=== PATIENT | male | born 1950 | race Caucasian/White ===

== ENCOUNTER → 2016-12-01 | Outpatient (CLI) | payer OTHER ==
--- NOTE | 2016-12-01 17:54 | XR ---
EXAMINATION TYPE: XR KUB DATE OF EXAM: 12/01/2016 5:49 PM COMPARISON: 02/24/2015 HISTORY: Flank pain TECHNIQUE: 2 views FINDINGS: There is no sign of intestinal obstruction or pneumoperitoneum. Fecal pattern is normal. Th ere are 2 calcifications over the left kidney that measure 5 mm. There are implants in the prostate g land. There is no sign of a mass. IMPRESSION: Left renal calcifications appear new compared to old exam. Nonacute abdomen.
== END ==
LOC: RADXRMAIN 17:36
PROVIDERS: ATTEND Urology
DX: N28.89 Other specified disorders of kidney and ureter (principal)
CPT/HCPCS: 74000

== ENCOUNTER → 2016-12-02 | Outpatient (CLI) | payer OTHER ==
--- NOTE | 2016-12-02 14:37 | XR ---
EXAMINATION TYPE: XR lumbar spine 2 or 3V DATE OF EXAM: 12/02/2016 2:14 PM COMPARISON: NONE HISTORY: 66-year-old male with low back pain TECHNIQUE: 3 views FINDINGS: 5 lumbar type vertebral bodies. There is facet arthropathy in the lower lumbar spine. There is modera te disc space narrowing in the upper lumbar spine with a mild multilevel endplate spondylosis. Sugges tion of a diffuse disc bulge at L4-L5. Vertebral body heights are preserved and alignment is maintain ed. IMPRESSION: 1. Facet arthropathy lower lumbar spine. 2. Multilevel degenerative disc disease, moderate in the upper lumbar spine. 3. No vertebral compression collapse or malalignment.
== END | disposition home or self-care (01) ==
LOC: RADXRMAIN 14:01
PROVIDERS: ATTEND Nurse Practitioner
DX: M12.88 Other specific arthropathies, not elsewhere classified, other specified site (principal); M51.36 Other intervertebral disc degeneration, lumbar region
CPT/HCPCS: 72100

== ENCOUNTER 2016-12-05 07:46 | Emergency (ER) | payer OTHER ==
[2016-12-05] MEDS ORDERED: KETOROLAC 30 MG/ML 1 ML VIAL IVP STA (08:05)
[2016-12-05] MEDS ORDERED: SODIUM CHLORIDE 0.9% 1,000 ML IV STA (08:05)
[2016-12-05] MEDS ORDERED: ONDANSETRON 4 MG/2 ML VIAL IVP STA (08:05)
--- NOTE | 2016-12-05 08:13 | ED ---
Abdominal Pain HPI - General Chief Complaint: Abdominal Pain Stated Complaint: poss kidney stone Time Seen by Provider: 12/05/16 07:51 Source: patient, RN notes reviewed Mode of arrival: ambulatory Limitations: no limitations - History of Present Illness Initial Comments: This is a 66-year-old male with a history of diabetes coronary artery disease with stents history kidney stones and history of prostate cancer which is currently being treated with radioactive seeds and sensitivity onset in August of this year back pain to get very severe last week and he did seek medical attention. He was found have to 5 mm kidney stones per his report and his left kidney. He had the onset this morning at 3 AM with severe 20/10 left-sided sharp flank pain nonradiating with associated nausea and dry heaves. He denies any fevers chills sweats cough phlegm production dysuria or hematuria. He states the pain is now down to about a 3 was starting to come back and has been episodic. He does not feel it's been moving since it started but always in about the same place. MD Complaint: flank pain - Related Data Home Medications Medication Instructions Recorded Confirmed Carvedilol [Coreg] 12.5 mg PO BID 02/24/15 12/05/16 Clopidogrel [Plavix] 75 mg PO DAILY 02/24/15 12/05/16 Furosemide [Lasix] 20 mg PO MOWEFR 02/24/15 12/05/16 Insulin Detemir [Levemir] See Protocol SQ BID 02/24/15 12/05/16 Losartan [Cozaar] 12.5 mg PO DAILY 02/24/15 12/05/16 Nitroglycerin Sl Tabs [Nitrostat] 0.4 mg SUBLINGUAL Q5M PRN 02/24/15 12/05/16 Omeprazole [PriLOSEC] 20 mg PO AC-BRKFST 02/24/15 12/05/16 Simvastatin [Zocor] 40 mg PO HS 02/24/15 12/05/16 sitaGLIPtin [Januvia] 100 mg PO DAILY 02/24/15 12/05/16 metFORMIN HCL 1,000 mg PO BID 02/27/15 12/05/16 Aspirin EC [Ecotrin Low Dose] 81 mg PO DAILY 12/05/16 12/05/16 Potassium Citrate [Potassium 10 meq PO BID 12/05/16 12/05/16 Citrate ER] Vitamin B Complex 1 cap PO DAILY 12/05/16 12/05/16 methylPREDNISolone [Medrol Dose See Taper PO DIRECTED 12/05/16 12/05/16 Pack] Previous Rx's Medication Instructions Recorded Tamsulosin HCl [Flomax] 0.4 mg PO DAILY #4 cap 02/24/15 Ketorolac [Toradol] 10 mg PO Q6HR #20 tab 12/05/16 Allergies Allergy/AdvReac Type Severity Reaction Status Date / Time No Known Allergies Allergy Unverified 12/05/16 08:39 Review of Systems ROS Statement: Those systems with pertinent positive or pertinent negative responses have been documented in the HPI. ROS Other: All systems not noted in ROS Statement are negative. Past Medical History Past Medical History: Coronary Artery Disease (CAD), Cancer, Chest Pain / Angina , Diabetes Mellitus, GERD/Reflux, Hypertension, Myocardial Infarction ([place]), Pneumonia, Prostate Disorder, Renal Disease Additional Past Medical History / Comment(s): 02/27/15 Pt presented to [facility] with R flank pain. PT has hx of frequent kidney stones. Pt was seen in ER on with microscopic hematuria, calculus kidney and flank pain. Other HX: multiple. kidney stones, IDDM, prostate cancer being monitored, pneumonia in 1998 and 1999. Last Myocardial Infarction Date:: 08/17/07 History of Any Multi-Drug Resistant Organisms: None Reported Past Surgical History: Cholecystectomy, Heart Catheterization With Stent, Orthopedic Surgery, Tonsillectomy Additional Past Surgical History / Comment(s): CCath with stent 08/17/07 , bilateral lasik eye surgery, L shoulder rotator cuff repair, L elbow bursa removal, Past Anesthesia/Blood Transfusion Reactions: No Reported Reaction Date of Last Stent Placement:: 08/17/07 Past Psychological History: No Psychological Hx Reported Additional Psychological History / Comment(s): Pt resides with his . He just retired and moved to [place] 1 month ago. He is independent. He uses no assistive device. No home care. He drives. Smoking Status: Never smoker Past Alcohol Use History: None Reported Past Drug Use History: None Reported - Past Family History Father Family Medical History: Cancer Additional Family Medical History / Comment(s): Father of lung cancer-he was a smoker. Mother Family Medical History: Cancer Additional Family Medical History / Comment(s): Mother of ovarian cancer. General Exam - General Exam Comments Initial Comments: This is a well-developed well-nourished awake alert oriented 3 male Limitations: no limitations General appearance: alert, anxious Head exam: Present: atraumatic, normocephalic, normal inspection Eye exam: Present: normal appearance, PERRL, EOMI. Absent: scleral icterus, conjunctival injection, periorbital swelling ENT exam: Present: normal exam, mucous membranes moist Neck exam: Present: normal inspection. Absent: tenderness, meningismus, lymphadenopathy Respiratory exam: Present: normal lung sounds bilaterally. Absent: respiratory distress, wheezes, rales, rhonchi, stridor Cardiovascular Exam: Present: regular rate, normal rhythm, normal heart sounds. Absent: systolic murmur, diastolic murmur, rubs, gallop, clicks GI/Abdominal exam: Present: soft, normal bowel sounds. Absent: distended, tenderness, guarding, rebound, rigid Extremities exam: Present: normal inspection, full ROM, normal capillary refill. Absent: tenderness, pedal edema, joint swelling, calf tenderness Back exam: Present: normal inspection. Absent: CVA tenderness (R), CVA tenderness (L), muscle spasm, paraspinal tenderness, vertebral tenderness Neurological exam: Present: alert, oriented X3, CN II-XII intact Psychiatric exam: Present: normal affect, normal mood Skin exam: Present: warm, dry, intact, normal color. Absent: rash Course Vital Signs 12/05/16 12/05/16 07:50 09:01 Temperature 97 F L 97.2 F L Pulse Rate 57 L 64 Respiratory 20 16 Rate Blood Pressure 188/79 131/75 O2 Sat by Pulse 98 98 Oximetry Medical Decision Making - Medical Decision Making I did reevaluate the patient on several occasions he is to be pain-free. He will be discharged I did discuss findings with him and his he'll be placed on a prescription for Toradol is a follow-up with his urologist and return when necessary is also increase oral fluids the patient was able to present a urine sample he is afebrile and has no elevation of white count so at this time I don' t infectious processes. He is already on Flomax. - Lab Data Result diagrams: 12/05/16 08:20 12/05/16 08:20 Lab Results 04/24/17 04/24/17 Range/Units 08:20 08:20 WBC 8.7 (3.8-10.6) k/uL RBC 4.94 (4.30-5.90) m/uL Hgb 15.1 (13.0-17.5) gm/dL Hct 44.4 (39.0-53.0) % MCV 89.8 (80.0-100.0) fL MCH 30.5 (25.0-35.0) pg MCHC 34.0 (31.0-37.0) g/dL RDW 13.2 (11.5-15.5) % Plt Count 161 (150-450) k/uL Neutrophils % 73 % Lymphocytes % 15 % Monocytes % 10 % Eosinophils % 1 % Basophils % 0 % Neutrophils # 6.3 (1.3-7.7) k/uL Lymphocytes # 1.3 (1.0-4.8) k/uL Monocytes # 0.9 (0-1.0) k/uL Eosinophils # 0.1 (0-0.7) k/uL Basophils # 0.0 (0-0.2) k/uL Sodium 139 (137-145) mmol/L Potassium 4.7 (3.5-5.1) mmol/L Chloride 98 (98-107) mmol/L Carbon Dioxide 29 (22-30) mmol/L Anion Gap 12 mmol/L BUN 26 H (9-20) mg/dL Creatinine 0.92 (0.66-1.25) mg/dL Est GFR (MDRD) Af Amer >60 (>60 ml/min/1.73 sqM) Est GFR (MDRD) Non-Af >60 (>60 ml/min/1.73 sqM) Glucose 166 H (74-99) mg/dL Calcium 9.4 (8.4-10.2) mg/dL Total Bilirubin 2.0 H (0.2-1.3) mg/dL AST 24 (17-59) U/L ALT 33 (21-72) U/L Alkaline Phosphatase 51 (38-126) U/L Total Protein 7.6 (6.3-8.2) g/dL Albumin 4.4 (3.5-5.0) g/dL Amylase 75 (30-110) U/L Lipase 527 H (23-300) U/L - Radiology Data Radiology results: report reviewed (I did review the x-rays and reports. Is a 4 mm obstructive left mid ureteral calculus with [id number] hydronephrosis some stranding is noted. Please see the complete report), image reviewed Disposition Clinical Impression: Kidney stone on left side, Renal colic on left side Disposition: HOME SELF-CARE Condition: Good Instructions: Kidney Stones (ED), Renal Colic (ED), Flank Pain (ED) Prescriptions: Ketorolac [Toradol] 10 mg PO Q6HR #20 tab
[2016-12-05 08:33] LABS: Basophils % (A) 0 %; CH 31.1; CHCM 34.7; Eosinophils # (A) 0.1 k/uL (0-0.7); Eosinophils % (A) 1 %; HCT 44.4 % (39.0-53.0); HDW 2.76; HGB 15.1 gm/dL (13.0-17.5); Luc # (Auto) 0.11; Luc % (Auto) 1; Lymphocytes # (A) 1.3 k/uL (1.0-4.8); Lymphocytes % (A) 15 %; MCH 30.5 pg (25.0-35.0); MCV 89.8 fL (80.0-100.0); Mean Platelet Volume 8.1; Monocytes # (A) 0.9 k/uL (0-1.0); Monocytes % (A) 10 %; Neutrophils # (A) 6.3 k/uL (1.3-7.7); Neutrophils % (A) 73 %; RBC 4.94 m/uL (4.30-5.90); RDW 13.2 % (11.5-15.5); WBC 8.7 k/uL (3.8-10.6); WBC (Perox) 8.81
[2016-12-05 08:41] LABS: ALT 33 U/L (21-72); AST 24 U/L (17-59); Alkaline Phosphatase 51 U/L (38-126); Amylase 75 U/L (30-110); Anion Gap 12 mmol/L; Blood Urea Nitrogen 26 mg/dL (9-20); Calcium 9.4 mg/dL (8.4-10.2); Carbon Dioxide 29 mmol/L (22-30); Chloride 98 mmol/L (98-107); Glucose 166 mg/dL (74-99); Non-African American GFR(MDRD) >60 (>60 ml/min/1.73 sqM); Potassium 4.7 mmol/L (3.5-5.1); Sodium 139 mmol/L (137-145); Total Protein 7.6 g/dL (6.3-8.2)
--- NOTE | 2016-12-05 09:01 | CT ---
EXAMINATION TYPE: CT abdomen pelvis wo con DATE OF EXAM: 12/05/2016 8:43 AM COMPARISON: 02/27/2015 HISTORY: 66-year-old male with left flank pain and history of renal stones CT DLP: 723.20 mGycm. Automated exposure control for dose reduction was used. TECHNIQUE: Contiguous axial scanning of the abdomen and pelvis without IV contrast. Coronal and sagit candi reconstructions performed. FINDINGS: The heart is normal size without pericardial effusion. Coronary vessel calcifications are present and are a marker for coronary artery disease. Strandy atelectasis in the lower lungs without pleural eff usion. Noncontrast appearance of the liver, adrenal glands, spleen, and pancreas grossly unremarkable. There is extensive bilateral perinephric stranding. Punctate 2 mm nonobstructive calculus posterior m id pole right kidney. There is a 5 mm nonobstructive calculus in the upper to midpole left kidney and punctate 1 to 2 mm calculus in the lower pole. In addition, there is mild to moderate left-sided hyd ronephrosis with a 4 mm obstructive calculus in the left mid ureter. No dilated small bowel, free fluid, or free air. Incidental normal variant of a direct takeoff of the common hepatic artery directly from the aorta ad jacent to the celiac axis. No mesenteric or retroperitoneal lymphadenopathy. Normal appendix. Mild scattered stool without pericolonic inflammatory change. There is circumferential bladder wall thickening. Numerous brachytherapy seeds are present. These are new from 02/27/2015. No abnormal fluid collection in the pelvis or pelvic lymphadenopathy. Bones: Degenerative changes at the hips and additional degenerative changes lower lumbar spine. IMPRESSION: 1. A 4 mm obstructive left mid ureteral calculus with mild to moderate left-sided hydronephrosis. 2. Prominent perinephric edema and fat stranding on both sides. This may be senescent change given b ilaterality. Correlate to exclude underlying infection. 3. Additional nonobstructive renal calculi measuring up to 5 mm on the left. 4. New brachytherapy seeds in the prostate gland. Bladder wall thickening could reflect chronic blad arsalan wall hypertrophy, cystitis, or posttreatment change.
[2016-12-05 09:02] VITALS: RESP 16
[2016-12-05 10:35] VITALS: BP 142/75; PULSE 63; TEMP 97.8
== END 2016-12-05 10:33 | disposition home or self-care (01) ==
LOC: EC 07:46
DX: N20.0 Calculus of kidney (principal); I25.10 Atherosclerotic heart disease of native coronary artery without angina pectoris; E11.9 Type 2 diabetes mellitus without complications; K21.9 Gastro-esophageal reflux disease without esophagitis; I10 Essential (primary) hypertension; I25.2 Old myocardial infarction; Z85.46 Personal history of malignant neoplasm of prostate; Z79.4 Long term (current) use of insulin; Z79.01 Long term (current) use of anticoagulants; Z79.82 Long term (current) use of aspirin; Z79.899 Other long term (current) drug therapy; Z90.49 Acquired absence of other specified parts of digestive tract
CPT/HCPCS: 99284; 96374; 96375; 96361 ×2; 36415; 80053; 82150; 83690; 85025; 74176; J2405; J1885

== ENCOUNTER → 2016-12-16 | Outpatient (CLI) | payer OTHER ==
--- NOTE | 2016-12-16 13:16 | XR ---
EXAMINATION TYPE: XR abdomen 1V DATE OF EXAM ORDERED: 12/16/2016 1:00 PM HISTORY: N20.1 L urethral calculus. COMPARISON: Previous study dated 12/01/2016. FINDINGS: Radioactive prostate seeds project over the prostate gland. There has been a previous chol ecystectomy. One of the 2 left renal calculi is no longer evident. One calcification overlying the upper pole on t he left is unchanged. No definite right-sided calculi are seen. IMPRESSION: LEFT-SIDED NEPHROLITHIASIS. THE OVERALL STONE LOBE HAS DECREASED.
== END | disposition home or self-care (01) ==
LOC: RADXRMAIN 12:43
PROVIDERS: ATTEND Urology
DX: N20.0 Calculus of kidney (principal)
CPT/HCPCS: 74000

== ENCOUNTER → 2016-12-19 | Outpatient (CLI) | payer OTHER ==
[2016-12-19 16:18] LABS: Basophils % (A) 1 %; CH 31.2; CHCM 35.3; Eosinophils # (A) 0.2 k/uL (0-0.7); Eosinophils % (A) 4 %; HCT 42.5 % (39.0-53.0); HDW 2.81; HGB 14.6 gm/dL (13.0-17.5); Luc # (Auto) 0.13; Luc % (Auto) 2; Lymphocytes # (A) 1.6 k/uL (1.0-4.8); Lymphocytes % (A) 27 %; MCH 30.5 pg (25.0-35.0); MCHC 34.4 g/dL (31.0-37.0); MCV 88.7 fL (80.0-100.0); Mean Platelet Volume 7.5; Monocytes # (A) 0.4 k/uL (0-1.0); Monocytes % (A) 7 %; Neutrophils # (A) 3.6 k/uL (1.3-7.7); Neutrophils % (A) 60 %; RBC 4.78 m/uL (4.30-5.90); RDW 12.7 % (11.5-15.5); WBC 6.1 k/uL (3.8-10.6); WBC (Perox) 6.21
[2016-12-19 16:23] LABS: Anion Gap 10 mmol/L; Blood Urea Nitrogen 19 mg/dL (9-20); Carbon Dioxide 30 mmol/L (22-30); Chloride 103 mmol/L (98-107); Non-African American GFR(MDRD) >60 (>60 ml/min/1.73 sqM); Potassium 4.8 mmol/L (3.5-5.1); Sodium 143 mmol/L (137-145)
[2016-12-19 16:26] LABS: Appearance,Urine Clear (Clear); Bilirubin,Urine Negative (Negative); Glucose,Urine (UA) Negative (Negative); Ketones,Urine Negative (Negative); Leukocyte Esterase,Urine Negative (Negative); Nitrite,Urine Negative (Negative); PH, Urine 5.5 (5.0-8.0); Protein,Urine Negative (Negative); Specific Gravity,Urine 1.016 (1.001-1.035); UA Billing (MACRO vs. MICRO) CHEM; Urobilinogen,Urine <2.0 mg/dL (<2.0)
== END | disposition home or self-care (01) ==
LOC: LABPAT 15:58
PROVIDERS: ATTEND Urology
DX: N20.1 Calculus of ureter (principal)
CPT/HCPCS: 36415; 80051; 81003; 82565; 84520; 85025

== ENCOUNTER 2016-12-26 07:11 | Day surgery (SDC) | payer OTHER ==
[2016-12-23 08:52] VITALS: BMI 27.5
[~2016-12-26 07:11] MED LIST: DEXAMETHASONE SOD PHOSPHATE 10 MG/ML 1 ML VIAL IV ONE; HYDROmorphone 1 MG/ML 1 ML SYRINGE IVP PRN; LACTATED RINGERS 1,000 ML IV SCH; ONDANSETRON 4 MG/2 ML VIAL IVP ONE; Pre Op ABX Message 1 EACH MISC MISCELLANE ONE
--- NOTE | 2016-12-26 07:20 | XR ---
EXAMINATION TYPE: XR KUB DATE OF EXAM: 12/26/2016 7:13 AM CLINICAL DATA: 66-year-old male left-sided kidney stone, preop lithotripsy today, [facility] COMPARISON: 12/16/2016 FINDINGS: Nonobstructive bowel gas pattern. Cholecystectomy clips. Numerous brachytherapy seeds embedded within the prostate gland. 4 mm calculus projecting at the left mid abdomen. The known left ureteral calcul us probably projects over the spinal elements and is not well seen. Severe degenerative change right hip and moderate on the left. IMPRESSION: 4 mm left-sided nephrolithiasis. Known left ureteral calculus may be superimposed on some of the spin al elements.
[2016-12-26 07:32] VITALS: RESP 16; TEMP 97
[2016-12-26] MEDS ORDERED: LIDOCAINE 1% 20 ML VIAL (10MG/ML) FOR IV START INTRADERMA ONE (07:35)
[2016-12-26 07:37] LABS: Glucose,Whole Blood 62 mg/dL (75-99)
[2016-12-26] MEDS ORDERED: PROPOFOL 10 MG/ML 20 ML VIAL IV ONE (07:59)
[2016-12-26] MEDS ORDERED: MIDAZOLAM 2 MG/2 ML VIAL ONE (07:59)
[2016-12-26] MEDS ORDERED: fentaNYL (PF) 50 MCG/ML 2 ML AMP ONE (07:59)
[2016-12-26 09:52] VITALS: BP 139/75; PULSE 64
--- NOTE | 2016-12-27 06:15 | OP ---
DATE OF SERVICE: 12/26/2016 SURGEON: JUAN REILLY MD PREOPERATIVE DIAGNOSIS: Left renal calculus. POSTOPERATIVE DIAGNOSIS: Left renal calculus. OPERATION: Extracorporeal shockwave lithotripsy of left renal calculus. ANESTHESIA: Intravenous sedation. The patient is a 66-year-old male with a history of urolithiasis. He recently spontaneously passed a left ureteral calculus. He continues to have a 4 mm calculus in the upper pole of the left kidney. Treatment options were reviewed with Dr. Davis and the patient has elected to proceed with ESWL. DESCRIPTION OF PROCEDURE: The patient was taken the operating suite where adequate intravenous sedation was given. Patient was placed on the fluoroscopy table. The calculus was identified using biplanar fluoroscopy. Lithotripsy was performed using the Dornier compact unit. Patient received 2500 shocks at a rate of 60 shocks per minute at an energy level of 4. A 2-minute pause occurred after 200 shocks. There appeared to be good fragmentation of the calculus. Anesthesia was reversed and the patient was returned to the recovery room, awake and in satisfactory condition to be seen back in one week at which time a KUB will be obtained. LOR
== END 2016-12-26 10:11 | disposition home or self-care (01) ==
LOC: ORWHC2ENDO 07:11
PROVIDERS: ATTEND Urology
DX: N20.0 Calculus of kidney (principal); K21.9 Gastro-esophageal reflux disease without esophagitis; E78.5 Hyperlipidemia, unspecified; E11.9 Type 2 diabetes mellitus without complications; Z79.84 Long term (current) use of oral hypoglycemic drugs; Z79.4 Long term (current) use of insulin; Z95.5 Presence of coronary angioplasty implant and graft; I25.2 Old myocardial infarction; I25.10 Atherosclerotic heart disease of native coronary artery without angina pectoris; I10 Essential (primary) hypertension; Z79.82 Long term (current) use of aspirin; Z79.891 Long term (current) use of opiate analgesic; Z79.899 Other long term (current) drug therapy; Z91.018 Allergy to other foods
CPT/HCPCS: 74000; 50590; J2250; J1100; J2405; J3010; J2704

== ENCOUNTER → 2016-12-30 | Outpatient (CLI) | payer OTHER ==
--- NOTE | 2016-12-30 10:08 | XR ---
EXAMINATION TYPE: XR abdomen 1V DATE OF EXAM: 12/30/2016 9:46 AM COMPARISON: 12/26/2016 INDICATION: Post lithotripsy left urethral calculus TECHNIQUE: Single view abdomen supine FINDINGS: There is a normal bowel gas pattern. Psoas margins are normal. No organomegaly is present. No suspicious ureteral or renal lithiasis is evident. Multiple prostate brachytherapy seeds are prese nt. There is advanced degenerative change at the right hip. Moderate degenerative changes at the left hip. IMPRESSION: 1. No suspicious calcifications. 2. Previous left renal stone is not identified. 3. Degenerative changes greater on the right hip than the left.
== END | disposition home or self-care (01) ==
LOC: RADXRMAIN 09:28
PROVIDERS: ATTEND Urology
DX: N20.1 Calculus of ureter (principal)
CPT/HCPCS: 74000

== ENCOUNTER → 2018-01-18 | Outpatient (CLI) | payer MEDICARE, OTHER ==
--- NOTE | 2018-01-18 19:37 | MR ---
EXAMINATION TYPE: MR lumbar spine wo/w con DATE OF EXAM: 01/18/2018 COMPARISON: NONE HISTORY: Low back pain CONTRAST: 9 mL intravenous Gadavist. TECHNIQUE: Multiplanar, multisequence images of the lumbar spine were acquired. FINDINGS: Cord terminates at the L1 level. L5-S1: There is a small central protrusion with mild anterior thecal sac compression. No AP spinal ca nal stenosis is present. Left facet hypertrophy is present. Neural foramen are patent. L4-L5: Mild disc bulge has anterior thecal sac contact. Moderate facet hypertrophy is present with li gamentum flavum laxity. No AP spinal canal stenosis present. Neural foramen are patent. L3-L4: No significant disc bulge or disc herniation. No spinal canal stenosis. No foraminal stenosi s. . L2-L3: No significant disc bulge or disc herniation. No spinal canal stenosis. No foraminal stenosi s. . L1-L2: No significant disc bulge or disc herniation. No spinal canal stenosis. No foraminal stenosi s. . T12-L1: No significant disc bulge or disc herniation. No spinal canal stenosis. No foraminal stenos is. . No abnormal enhancement. IMPRESSION: 1. Tiny central protrusion L5-S1 with mild disc bulging L4-5. These have mild anterior thecal sac con tact.
== END | disposition home or self-care (01) ==
LOC: RADMRIMAIN 06:28
PROVIDERS: ATTEND Physical Medicine & Rehabilitation
DX: M51.16 Intervertebral disc disorders with radiculopathy, lumbar region (principal); E11.42 Type 2 diabetes mellitus with diabetic polyneuropathy
CPT/HCPCS: 72158; A9581

== ENCOUNTER → 2018-03-09 | Outpatient (CLI) | payer MEDICARE, OTHER ==
[2018-03-09 15:23] LABS: Blood Urea Nitrogen 18 mg/dL (9-20)
--- NOTE | 2018-03-11 14:30 | CT ---
EXAMINATION TYPE: CT abdomen pelvis w con DATE OF EXAM: 03/09/2018 COMPARISON: 12/05/2016 HISTORY: Right sided abdominal pain radiating posteriorly. CT DLP: 1359 mGycm Automated exposure control for dose reduction was used. TECHNIQUE: Helical acquisition of images was performed from the lung bases through the pelvis. CONTRAST: Performed with Oral Contrast and with IV Contrast, patient injected with 100ml mL of Isovue M300. FINDINGS: LUNG BASES: There is minimal bibasilar subsegmental atelectasis. 2 mm area of focal pleural thickenin g along the lingula on series 2 image 3 is unchanged from the prior. LIVER/GB: No significant abnormality is appreciated. Gallbladder surgically absent with cholecystecto my clips in the right upper quadrant. PANCREAS: No significant abnormality is seen. SPLEEN: No significant abnormality is seen. Clinically. ADRENALS: There is a 1.2 cm left adrenal gland fat-containing nodule representing either a myelolipom a or lipid rich adenoma, both benign. Right adrenal gland is unremarkable. KIDNEYS: Kidneys enhance and excrete symmetrically without hydronephrosis or nephrolithiasis. Previou sly seen left-sided obstructive uropathy has resolved. FREE AIR: No free air is visualized. ADENOPATHY: No greater than 1 cm short axis lymph nodes are seen within the abdomen or pelvis. A trisha itary prominent peripancreatic lymph node measures 1.0 cm in short axis but appears similar to the pr ior of 2017. Mesenteric lymph node within the low pelvis is also unchanged from 2017 seen anteriorly on series 2 image 77. REPRODUCTIVE ORGANS: Brachytherapy seeds are noted within the prostate gland. Pelvis is partially obs cured by extensive spray artifact from a right hip prosthesis. URINARY BLADDER: No significant abnormality is seen. OSSEOUS STRUCTURES: There are mild degenerative changes of the spine and moderate left femoral aceta bular arthropathy with right femoral arthroplasty noted. BOWEL: Moderate degree of retained colonic stool is noted throughout the large bowel. Appendix is co ntrast-filled and within normal limits. OTHER: Normal variant branch pattern of the splenic artery is noted directly from the aorta. Mild clovis cific atheromatous changes are seen of the abdominal aorta and its branches. IMPRESSION: 1. NO NEW ACUTE FINDING TO ACCOUNT FOR THE PATIENT'S PAIN. CONSIDERING THE PATIENT'S HISTORY OF PROST ATE CANCER NUCLEAR MEDICINE BONE SCAN COULD BE PERFORMED TO EVALUATE FOR OSSEOUS METASTASIS. 2. RESOLUTION OF THE PREVIOUSLY SEEN LEFT OBSTRUCTIVE UROPATHY.
== END ==
LOC: RADCTMAIN 14:46
PROVIDERS: ATTEND Nurse Practitioner
DX: R10.9 Unspecified abdominal pain (principal)
CPT/HCPCS: 82565; 84520; 74177; 36415; Q9967

== ENCOUNTER → 2018-03-21 | Outpatient (CLI) | payer MEDICARE, OTHER ==
--- NOTE | 2018-03-21 16:47 | NM ---
EXAMINATION TYPE: NM bone scan whole body DATE OF EXAM: 03/21/2018 COMPARISON: Correlation CT abdomen pelvis 03/09/2018 HISTORY: 67-year-old male low back pain and sciatic pain for 3 months, progressively worsening. Histo ry of prostate cancer 2 years ago. Technique: Delayed whole-body scanning was performed following the injection of 24.1 mCi Tc 99m MDP. Images acquired 3.5 hours post injection. FINDINGS: Increased focal tracer activity at the right AC joint, bilateral sternoclavicular joints, posterior e lements of the lower thoracic spine on the right, posterior elements of the upper lumbar spine. Additional photopenic defect at the right hip with increased activity along the femoral stem componen t. No suspicious distribution of tracer activity to suggest osseous metastatic disease. IMPRESSION: 1. Scattered degenerative tracer activity within the lower third thoracic spine, upper lumbar spine, right AC joint, and both sternoclavicular joints. 2. Some increased activity about the patient's femoral stem component of the right hip total arthropl asty. Nonspecific but can be seen in the setting of loosening. Clinically correlate. 3. No scintigraphic evidence for osseous metastatic disease.
== END | disposition home or self-care (01) ==
LOC: RADNMMAIN 09:50
PROVIDERS: ATTEND Family Medicine
DX: C61 Malignant neoplasm of prostate (principal); R93.7 Abnormal findings on diagnostic imaging of other parts of musculoskeletal system; Z96.641 Presence of right artificial hip joint
CPT/HCPCS: 78306; A9503

== ENCOUNTER → 2020-01-15 | Outpatient (CLI) | payer MEDICARE, OTHER ==
[2020-01-15 14:47] LABS: Basophils % (A) 1 %; Eosinophils # (A) 0.2 k/uL (0-0.7); Eosinophils % (A) 4 %; HCT 39.6 % (39.0-53.0); HGB 12.1 gm/dL (13.0-17.5); Hypochromasia Slight; Lymphocytes # (A) 1.3 k/uL (1.0-4.8); Lymphocytes % (A) 28 %; MCH 25.1 pg (25.0-35.0); MCHC 30.5 g/dL (31.0-37.0); MCV 82.2 fL (80.0-100.0); Mean Platelet Volume 9.2; Monocytes # (A) 0.4 k/uL (0-1.0); Monocytes % (A) 9 %; Neutrophils # (A) 2.6 k/uL (1.3-7.7); Neutrophils % (A) 57 %; Platelet Count 136 k/uL (150-450); RBC 4.82 m/uL (4.30-5.90); RDW 14.1 % (11.5-15.5); WBC 4.6 k/uL (3.8-10.6)
[2020-01-16 00:27] LABS: % Iron Saturation 12.5 (15.00-50.00)
[2020-01-16 00:37] LABS: Ferritin 14.7 ng/mL (22.0-322.0)
== END | disposition home or self-care (01) ==
LOC: LABWHC1 13:46
PROVIDERS: ATTEND Nurse Practitioner
DX: D64.9 Anemia, unspecified (principal)
CPT/HCPCS: 36415; 82272; 82728; 83540; 83550; 85025

== ENCOUNTER 2020-02-27 06:45 | Day surgery (SDC) | payer MEDICARE, OTHER ==
[2020-02-25 14:17] VITALS: BMI 28.7
[~2020-02-27 06:45] MED LIST changes: -DEXAMETHASONE SOD PHOSPHATE 10 MG/ML 1 ML VIAL IV ONE; -HYDROmorphone 1 MG/ML 1 ML SYRINGE IVP PRN; -ONDANSETRON 4 MG/2 ML VIAL IVP ONE; -Pre Op ABX Message 1 EACH MISC MISCELLANE ONE
[2020-02-27 07:11] LABS: Glucose,Whole Blood 87 mg/dL (75-99)
[2020-02-27 07:17] VITALS: RESP 16; TEMP 98.4
[2020-02-27] MEDS ORDERED: LIDOCAINE 1% (10MG/ML) FOR IV START INTRADERMA ONE (07:17)
[2020-02-27] MEDS ORDERED: LIDOCAINE 1% INJ 10MG/ML (20 ML MDV) ONE (07:29)
[2020-02-27] MEDS ORDERED: GLYCOPYRROLATE 0.2 MG/ML 2 ML VIAL ONE (07:29)
[2020-02-27] MEDS ORDERED: PROPOFOL 10 MG/ML 20 ML VIAL IV ONE (07:29)
--- NOTE | 2020-02-27 08:11 | P.PCN ---
Date of Procedure: 02/27/20 Description of Procedure: Brief history: Patient is a pleasant 69-year-old male presenting for outpatient EGD and colonoscopy for evaluation of iron deficiency anemia. 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 Denies any signs or symptoms of GI bleeding. Last colonoscopy 2014. Procedure performed: Esophagogastroduodenoscopy with biopsy Colonoscopy Estimated blood loss: Minimal. Preoperative diagnosis: Iron deficiency anemia, last colonoscopy 2014 Anesthesia: MAC Procedure: After informed consent was obtained from the patient was brought into the endoscopy unit and IV sedation was administered by anesthesia under continuous monitoring. Initially upper endoscopy was done. The Olympus GF 190 video endoscope was inserted into the mouth and esophagus intubated without any difficulty and was gradually advanced into the stomach and duodenum and carefully examined. The bulb and second part of the duodenum appeared normal, with biopsies taken to rule out celiac sprue. The scope was then withdrawn into the stomach adequately insufflated with air and upon careful examination the antrum and body, cardia and fundus appeared normal, except for some mild scattered erythema in the antrum and body suggestive of mild gastritis with biopsies taken. There were also multiple diminutive gastric polyps predominantly in the body of the stomach likely representing fundic gland polyps which were biopsied. The scope was then withdrawn into the esophagus. The GE junction was located at 41 cm to the incisors. It appeared regular with no erythema erosions or ulcerations. Rest of the esophagus appeared normal. Patient tolerated the procedure well. At this time the patient continued to remain sedation. Initial digital rectal examination was normal. Olympus CF 190 video colonoscope was then inserted into the rectum and gradually advanced to the cecum without any difficulty. Careful examination was performed as the scope was gradually being withdrawn. The prep was excellent. The cecum, ascending colon, transverse colon, descending colon, sigmoid colon and rectum appeared normal. A few large and small mouth diverticula noted scattered throughout the colon. Retroflexion was performed in the rectum and no lesions were noted, low-grade internal hemorrhoids. Patient tolerated the procedure well. Impression: 1. Mild gastritis antrum and body, biopsied. Biopsies of the duodenum. Gastric polyps (likely fundic gland polyps) biopsied. 2. Mild pandiverticulosis. Otherwise normal-appearing colon from rectum to cecum with normal-appearing terminal ileum. Recommendations: Findings of this examination were discussed with the patient. Okay to resume diet. Okay to resume medications including anticoagulation therapy today. Continue to follow up with hematology as scheduled. Consider video capsule endoscopy for further evaluation if iron deficiency anemia persists.
[2020-02-27 08:20] LABS: Glucose,Whole Blood 101 mg/dL (75-99)
[2020-02-27 08:46] VITALS: BP 133/78; PULSE 80
== END 2020-02-27 08:39 | disposition home or self-care (01) ==
LOC: ORWHC2ENDO 06:45
PROVIDERS: ATTEND Internal Medicine
DX: D50.9 Iron deficiency anemia, unspecified (principal); K31.7 Polyp of stomach and duodenum; K57.30 Diverticulosis of large intestine without perforation or abscess without bleeding; K64.8 Other hemorrhoids; K29.70 Gastritis, unspecified, without bleeding; Z80.1 Family history of malignant neoplasm of trachea, bronchus and lung; I25.10 Atherosclerotic heart disease of native coronary artery without angina pectoris; I25.2 Old myocardial infarction; I10 Essential (primary) hypertension; E78.5 Hyperlipidemia, unspecified; Z87.442 Personal history of urinary calculi; Z95.5 Presence of coronary angioplasty implant and graft; G57.93 Unspecified mononeuropathy of bilateral lower limbs; K21.9 Gastro-esophageal reflux disease without esophagitis; Z79.891 Long term (current) use of opiate analgesic; Z79.01 Long term (current) use of anticoagulants; Z79.4 Long term (current) use of insulin; Z79.1 Long term (current) use of non-steroidal anti-inflammatories (NSAID); Z79.899 Other long term (current) drug therapy; Z79.82 Long term (current) use of aspirin; Z85.46 Personal history of malignant neoplasm of prostate
CPT/HCPCS: 88305; 45378; 43239; J2001; J2704

== ENCOUNTER 2021-01-05 05:53 | Day surgery (SDC) | payer MEDICARE, OTHER ==
[~2021-01-05 05:53] MED LIST changes: +ALPRAZolam 0.25 MG TAB PO PRN; +ALPRAZolam 0.5 MG TAB PO PRN; +HEPARIN SODIUM,PORCINE 10,000 UNIT in SODIUM CHLORIDE 0.9% 1,000 ML IRRIGATION PRN; +HEPARIN SODIUM,PORCINE 2,500 UNIT in SODIUM CHLORIDE 0.9% 250 ML IRRIGATION PRN; -LACTATED RINGERS 1,000 ML IV SCH; +NITROGLYCERIN SL TABS 0.4 MG TAB SUBLINGUAL PRN; +SODIUM CHLORIDE 0.9% 1,000 ML in EMPTY BAG 1 BAG IV ONE
[2021-01-05] MEDS ORDERED: SODIUM CHLORIDE 0.9% 1,000 ML IV ONE (06:17)
[2021-01-05 06:39] LABS: Basophils % (A) 1 %; Eosinophils # (A) 0.3 k/uL (0-0.7); Eosinophils % (A) 5 %; HCT 44.8 % (39.0-53.0); HGB 15.6 gm/dL (13.0-17.5); Lymphocytes # (A) 1.5 k/uL (1.0-4.8); Lymphocytes % (A) 30 %; MCH 31.3 pg (25.0-35.0); MCHC 34.8 g/dL (31.0-37.0); MCV 89.8 fL (80.0-100.0); Mean Platelet Volume 8.8; Monocytes # (A) 0.5 k/uL (0-1.0); Monocytes % (A) 10 %; Neutrophils # (A) 2.8 k/uL (1.3-7.7); Neutrophils % (A) 53 %; Platelet Count 140 k/uL (150-450); RBC 4.99 m/uL (4.30-5.90); RDW 13.1 % (11.5-15.5); WBC 5.2 k/uL (3.8-10.6)
[2021-01-05] MEDS ORDERED: ASPIRIN 325 MG TAB PO ONE (07:00)
[2021-01-05] MEDS ORDERED: ATORVASTATIN 80 MG TAB PO ONE (07:00)
[2021-01-05] MEDS ORDERED: LIDOCAINE 1% INJ 10MG/ML (20 ML MDV) ONE (07:10)
[2021-01-05] MEDS ORDERED: VERAPAMIL 2.5 MG/ML 2 ML AMP ONE (07:10)
[2021-01-05] MEDS ORDERED: fentaNYL (PF) 50 MCG/ML 2 ML AMP ONE (07:23)
[2021-01-05] MEDS ORDERED: HEPARIN SODIUM 1,000 UN/ML (10ML VL) ONE (07:23)
[2021-01-05] MEDS ORDERED: fentaNYL (PF) 50 MCG/ML 2 ML AMP IV ONE (07:32)
[2021-01-05] MEDS ORDERED: LIDOCAINE 1% INJ 10MG/ML (20 ML MDV) SQ ONE (07:34)
[2021-01-05] MEDS ORDERED: VERAPAMIL SYRINGE (5 MG/10 ML) INTRAARTER ONE (07:36)
[2021-01-05] MEDS ORDERED: CLOPIDOGREL 75 MG TAB ONE (07:52)
[2021-01-05] MEDS ORDERED: CLOPIDOGREL 75 MG TAB PO ONE (07:56)
[2021-01-05] MEDS ORDERED: IOPAMIDOL-370 125ML BTL INJ ONE (08:02)
[2021-01-05] MEDS ORDERED: MIDAZOLAM 2 MG/2 ML VIAL IV ONE (08:20)
[2021-01-05] MEDS ORDERED: IOPAMIDOL-370 100ML BTL INJ ONE ×2 (08:37→08:53)
[2021-01-05] MEDS ORDERED: NITROGLYCERIN SL TABS 0.4 MG TAB SUBLINGUAL PRN (09:05)
[2021-01-05] MEDS ORDERED: RX INFO: IV CONTRAST WAS GIVEN 1 EACH MISC MISCELLANE PRN (09:05)
[2021-01-05] MEDS ORDERED: ATROPINE SULFATE 0.1 MG/ML 10ML SYRINGE IV PRN (09:05)
[2021-01-05] MEDS ORDERED: ZOLPIDEM 5 MG TAB PO PRN (09:05)
[2021-01-05] MEDS ORDERED: MAG HYDROX/AL HYDROX/SIMETH 30 ML CUP PO PRN (09:05)
[2021-01-05] MEDS ORDERED: SODIUM CHLORIDE 0.9% 1,000 ML IV SCH (09:15)
[2021-01-05 09:18] LABS: Glucose,Whole Blood 89 mg/dL (75-99)
--- NOTE | 2021-01-05 09:33 | CC ---
CARDIAC CATHETERIZATION REPORT Mr. Patel is a 70-year-old male with known history of coronary artery disease status post stenting in 2007, history of hypertension, hyperlipidemia, and diabetes mellitus, who presented with symptoms of exertional chest discomfort going on for the last 2-3 weeks. In view of that, recommendation was made regarding cardiac catheterization. The procedure as well as the risks and the complications were discussed with the patient who is in full understanding and agreement. PROCEDURE: Patient was brought to slab conditioner supervisor in a fasting, semi-sedated state after receiving fentanyl and Benadryl and achieving moderate conscious sedated state. Using Xylocaine anesthesia and Seldinger technique, a 6-Andorran sheath was introduced in the right radial artery. Selective right and left coronary angiography performed using 5-Andorran 3.5 bend right and left Karlee catheter. Multiple views of the coronary artery including hemiaxial views were obtained. Following that, 5-Andorran tight pigtail catheter was introduced in the left ventricle and the left ventricular end-diastolic pressure was calculated. Following that, catheters were removed. Images were reviewed. Of note, the patient received intra-arterial verapamil and a total of 7000 units of intravenous heparin during the procedure. FINDINGS: FLUOROSCOPY: There was significant calcification involving the left anterior descending artery. LEFT MAIN: This is a short size vessel, bifurcating into left circumflex, left anterior descending artery. Left main coronary artery has no evidence of high-grade stenosis. LEFT ANTERIOR DESCENDING ARTERY: This is a large-sized vessel reaching to the apex with a wraparound apex segment giving rise to 2 diagonal branches of small caliber. The vessel is calcified at the takeoff of the diagonal branch. There is an eccentric calcified 50% plaque. The rest of the vessel has no high-grade stenosis. LEFT CIRCUMFLEX: This is a nondominant vessel giving rise to 3 obtuse marginal branches. At the takeoff of the first obtuse marginal branch, there is 99% stenosis involving the obtuse marginal branch and the obtuse marginal branch in the mid segment has another 95% stenosis. After the takeoff of a small second obtuse marginal branch, there is 99% stenosis. Distally the vessel has no evidence of high-grade stenosis. RIGHT CORONARY ARTERY: This is a large dominant vessel bifurcating into PDA and posterolateral segment and branches. The stented segment in the mid right coronary artery is patent with mild intimal restenosis of 20% to 30%. There is intimal disease in the distal right coronary artery. The PDA has an area of stenosis up to 60% to 70% stenosis. Beyond that, the vessel is smaller in caliber. LEFT VENTRICULOGRAM: Left ventriculogram was not performed. HEMODYNAMICS: There was no gradient across the aortic valve. The left ventricular end-diastolic pressure was 10 to 12 mmHg. CONCLUSION: 1. Critical stenosis involving the first and third obtuse marginal branch. 2. Moderate disease in the mid LAD. 3. Patent stent in the RCA with mild intimal restenosis with moderate significant stenosis in the mid right PDA. 4. Calcified coronary arteries. RECOMMENDATION: In view of finding anatomy, I recommend proceeding with angioplasty and stenting of the left circumflex. The procedure as well as the risks and the complications were discussed with the patient who is in full understanding and agreement. MMWML / IJN: [id number] /
--- NOTE | 2021-01-05 09:45 | PTCA ---
PERCUTANEOUSTRANS CORORONARY ANGIOGRAPHY Mr. Patel is a 70-year-old male with a known history of coronary artery disease who presented with symptoms of angina pectoris, underwent cardiac catheterization was found to have critical stenosis involving the left circumflex obtuse marginal branch 1 and 3. In view of that, recommendation was made regarding angioplasty and stenting. The procedure as well as the risks and complications were discussed with the patient who is in full understanding and agreement. PROCEDURE: A 6-Azerbaijani EBU 3.75 guiding catheter was introduced in the system. After cannulating the left main, a 0.014 balanced medium weight J-wire was advanced across the lesion and positioned in the third obtuse marginal branch. Following that attempt to advance another 0.014 balanced medium weight J-wire in the first obtuse marginal branch were unsuccessful. At that point that wire was removed and a 0.014 Whisper J-wire with the help of a SuperCross straight catheter was used to cross the lesion of the first obtuse marginal branch and positioned distally. Subsequently, the wire was exchanged through the SuperCross to another 0.014 balanced medium weight J-wire. Following that, a 2.25 x 12 mm NC Trek balloon was advanced, inflations in the third obtuse marginal branch as well as the first obtuse marginal branch were done at a maximum of 8 atmospheres. Following that, the balloon was removed and a 2.25 x 23 mm Xience Nancy stent was deployed in the third obtuse marginal branches and post dilated at 16 atmospheres. Following that, the balloon was removed and a 2.5 x 28 mm Xience Nancy stent was deployed in the first obtuse marginal branch and post dilated at 16 atmospheres. Following that, the wire of the third obtuse marginal branch was withdrawn and reintroduced through the stent and a 2.25 x 12 mm NC Trek balloon was advanced and the bifurcation was done at 10 atmospheres. Following that, the balloon was removed and a 3.0 x 8 mm NC Trek balloon was advanced and inflation in the proximal stented segment of the first obtuse marginal branch at the bifurcation was done at a maximum of 12 atmospheres. After the last inflation, after appropriate wait, the balloon and the guidewire were withdrawn back in the guiding catheter. Images were obtained and repeated. Those images reveal stable successful stenting. At that point, the guiding catheter, the balloon and the guidewire were removed. The sheath was removed hemostasis was obtained with deployment of TR band. There was no immediate complication. Patient was returned to his room in stable condition. Of note, the patient had chest discomfort during the procedure that resolved at the end of the procedure. He had no significant EKG changes. He received a total of 7000 units of intravenous heparin. His ACT was followed. He received an oral loading dose of clopidogrel. RESULTS: 1. Successful stenting of the first obtuse marginal branch with reduction of stenosis from 99% to 0%. 2. Successful stenting of the third obtuse marginal branch and the AV groove left circumflex with reduction of stenosis from 99% to 0%. RECOMMENDATION: Patient be continued on aspirin, Plavix, INDIO inhibitor and statin. At a later time, his aspirin will be stopped and he will be continued on the continued on Eliquis for his history of deep venous thrombosis. Those findings and recommendations were discussed with the patient and his family who are in full understanding and agreement. Duration of procedure is 80 minutes. MMERICA / ALESIAN: [id number] /
--- NOTE | 2021-01-05 09:49 | LTR ---
January 05, 2021 Re: Otto Patel Dear Dr. Chambers: I had the opportunity to perform cardiac catheterization and coronary angioplasty on Mr. Patel at [facility] on the 05 of January and a full copy of the procedure note will be forwarded to you. In brief he was found to have significant stenosis involving the first and the third obtuse marginal branch as well as moderate disease in the RCA and the LAD. He underwent successful stenting of the left circumflex territory. I am hopefully that this procedure will stabilize his status. Thank you again for allowing me the opportunity to participate in his care. Please feel free to call me for any questions. Sincerely yours, Shanna Medrano MD MMWML / ALESIAN: [id number] /
[2021-01-05 11:46] LABS: Glucose,Whole Blood 144 mg/dL (75-99)
[2021-01-05 15:27] VITALS: BMI 28.5
[2021-01-05 17:23] LABS: Glucose,Whole Blood 155 mg/dL (75-99)
[2021-01-05] MEDS: carvediloL 12.5 MG TAB PO SCH (17:31)
[2021-01-05] MEDS: GABAPENTIN 300 MG CAP PO SCH (20:25)
[2021-01-05 20:44] LABS: Glucose,Whole Blood 164 mg/dL (75-99)
[2021-01-05] MEDS ORDERED: ATORVASTATIN 80 MG TAB PO SCH (21:00)
[2021-01-05] MEDS ORDERED: TAMSULOSIN 0.4 MG CAP.ER.24H PO SCH (21:00)
[2021-01-06 06:33] LABS: African American GFR (CKD) >90 (>60 ml/min/1.73 sqM); Anion Gap 4 mmol/L; Blood Urea Nitrogen 18 mg/dL (9-20); Calcium 8.6 mg/dL (8.4-10.2); Carbon Dioxide 28 mmol/L (22-30); Chloride 104 mmol/L (98-107); Glucose 150 mg/dL (74-99); Non-African American GFR(CKD) 81 (>60 ml/min/1.73 sqM); Potassium 4.5 mmol/L (3.5-5.1); Sodium 136 mmol/L (137-145)
[2021-01-06 07:06] LABS: Glucose,Whole Blood 143 mg/dL (75-99)
[2021-01-06 07:29] VITALS: BP 127/69; PULSE 77; RESP 18; TEMP 97.9
[2021-01-06] MEDS ORDERED: PANTOPRAZOLE 40 MG TABLET PO SCH (07:30)
[2021-01-06] MEDS: GABAPENTIN 300 MG CAP PO SCH (07:39)
[2021-01-06] MEDS: carvediloL 12.5 MG TAB PO SCH (07:39)
--- NOTE | 2021-01-06 08:48 | PN ---
PROGRESS NOTE Mr. Patel is a 70-year-old male with known history of coronary artery disease, hypertension, hyperlipidemia, and diabetes mellitus, who presented with symptoms of new onset angina pectoris underwent cardiac catheterization was found to have critical stenosis in the first and third obtuse marginal branch, underwent stenting of both vessels. He had moderate disease in the LAD and the right PDA. He is doing well this morning, ambulating without difficulty. Denying any chest pain. No dizziness. No palpitation. He continues to be on aspirin once a day, Plavix 75 mg daily, Lipitor 80 mg daily, Coreg 12.5 mg twice a day, Jardiance 25 mg daily, isosorbide mononitrate 30 mg daily, losartan 25 mg daily, Protonix 40 mg daily, and tamsulosin 0.4 mg a day. PHYSICAL EXAMINATION: Blood pressure 112/60 with the heart rate in 70s. LUNGS: Clear. HEART: Regular rate and rhythm. S1, S2. No S3. No rub. ABDOMEN: Soft, nontender. EXTREMITIES: No edema. Right radial pulse intact. EKG revealed no acute changes. LAB DATA: Lab data revealed BUN and creatinine of 18 and 0.97, potassium 4.5. IMPRESSION: 1. Status post stenting of the first and third obtuse marginal branch. 2. History of coronary artery disease with moderate disease in the LAD and the right PDA. 3. Hypertension. 4. Hyperlipidemia. 5. Diabetes mellitus. RECOMMENDATION: Patient will be discharged home today and followed as an outpatient. He will resume Eliquis today and his aspirin will be stopped as an outpatient. MMODL / IJN: [id number] /
[2021-01-06] MEDS ORDERED: ISOSORBIDE MONONITRATE ER 30 MG TAB.ER.24H PO SCH (09:00)
[2021-01-06] MEDS ORDERED: ASPIRIN 81 MG PO SCH (09:00)
[2021-01-06] MEDS ORDERED: LOSARTAN 25 MG TAB PO SCH (09:00)
[2021-01-07] MEDS ORDERED: CLOPIDOGREL 75 MG TAB PO SCH (09:00)
== END 2021-01-06 10:16 | disposition home or self-care (01) ==
LOC: CATHCVL 05:53 → 6NMEDSUR 10:35 → CATHCVL 01-06 10:16
PROVIDERS: ATTEND Internal Medicine Interventional Cardiology
DX: I25.110 Atherosclerotic heart disease of native coronary artery with unstable angina pectoris (principal); I25.84 Coronary atherosclerosis due to calcified coronary lesion; I10 Essential (primary) hypertension; E78.2 Mixed hyperlipidemia; E11.51 Type 2 diabetes mellitus with diabetic peripheral angiopathy without gangrene; Z72.0 Tobacco use; Z79.82 Long term (current) use of aspirin; Z79.899 Other long term (current) drug therapy; E78.00 Pure hypercholesterolemia, unspecified; T82.855A Stenosis of coronary artery stent, initial encounter; G47.33 Obstructive sleep apnea (adult) (pediatric); Z79.01 Long term (current) use of anticoagulants; Z79.4 Long term (current) use of insulin
CPT/HCPCS: 93458; 80048; 85025; 87635; C9600; C9601; C1769 ×4; C1887 ×2; C1894; C1725 ×2; C1874; J2250; J2001; J3010; J1644; Q9967 ×2

== ENCOUNTER 2022-05-09 16:05 | Emergency (ER) | payer OTHER, MEDICARE ==
[2022-05-09 16:23] VITALS: BP 160/71; PULSE 73; RESP 18; TEMP 97.7
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
== END 2022-05-09 18:45 | disposition home or self-care (01) ==
LOC: EC 16:05
DX: M54.50 Low back pain, unspecified (principal); E11.9 Type 2 diabetes mellitus without complications; K21.9 Gastro-esophageal reflux disease without esophagitis; Z79.83 Long term (current) use of bisphosphonates; Z79.82 Long term (current) use of aspirin; I25.10 Atherosclerotic heart disease of native coronary artery without angina pectoris; I10 Essential (primary) hypertension; Z82.49 Family history of ischemic heart disease and other diseases of the circulatory system; V89.2XXA Person injured in unspecified motor-vehicle accident, traffic, initial encounter
CPT/HCPCS: 70450; 71046; 72072; 72100; 72125; 99284

== ENCOUNTER → 2022-07-01 | Day surgery (SDC) | payer MEDICARE, OTHER ==
[2022-06-29 16:00] VITALS: BMI 29.7
[~2022-07-01] MED LIST changes: +ASPIRIN 325 MG TAB PO STA; +ASPIRIN 81 MG PO SCH; +ATORVASTATIN 80 MG TAB PO STA; +ATROPINE SULFATE 0.1 MG/ML 10ML SYRINGE IV PRN; +CLOPIDOGREL 75 MG TAB ONE; +CLOPIDOGREL 75 MG TAB PO ONE; +CLOPIDOGREL 75 MG TAB PO SCH; +GLIPIZIDE 2.5 MG PO SCH; +HEPARIN SODIUM 1,000 UN/ML (10ML VL) IVP ONE; +HEPARIN SODIUM 1,000 UN/ML (10ML VL) ONE; +IOPAMIDOL-370 100ML BTL INJ ONE; +IOPAMIDOL-370 125ML BTL INJ ONE; +ISOSORBIDE MONONITRATE ER 30 MG TAB.ER.24H PO SCH; +LIDOCAINE 1% INJ 10MG/ML (30 ML VIAL-PF) SQ ONE; +LOSARTAN 25 MG TAB PO SCH; +MAG HYDROX/AL HYDROX/SIMETH 30 ML CUP PO PRN; +NON FORMULARY DRUG (Rosuvastatin Calcium [Crestor] 40 MG Tablet) PO SCH; +RX INFO: IV CONTRAST WAS GIVEN 1 EACH MISC MISCELLANE PRN; +SODIUM CHLORIDE 0.9% 1,000 ML IV ONE; -SODIUM CHLORIDE 0.9% 1,000 ML in EMPTY BAG 1 BAG IV ONE; +SODIUM CHLORIDE 0.9% 1,000 ML in EMPTY BAG 1 BAG IV SCH; +TAMSULOSIN 0.4 MG CAP.ER.24H PO SCH; +VERAPAMIL 2.5 MG/ML 2 ML AMP ONE; +VERAPAMIL SYRINGE (5 MG/10 ML) INTRAARTER ONE; +ZOLPIDEM 5 MG TAB PO PRN; +carvediloL 12.5 MG TAB PO SCH; +fentaNYL (PF) 50 MCG/ML 2 ML AMP IVP ONE; +fentaNYL (PF) 50 MCG/ML 2 ML AMP ONE
[2022-07-01 08:15] LABS: Glucose,Whole Blood 75 mg/dL (70-110)
[2022-07-01 08:28] VITALS: RESP 16; TEMP 97.9
--- NOTE | 2022-07-01 10:04 | P.CARDCATH ---
Date of Procedure: 07/01/22 Description of Procedure: Cardiac Catheterization: The patient is a 72-year-old male with a known history of hypertension, hyperlipidemia, diabetes mellitus and prior PCI who presented with symptoms of progressive dyspnea and chest discomfort reminding him of the way he felt prior to his PCI. Recommendations were made regarding cardiac catheterization, the risks and the complications were discussed with the patient who is in full understanding and agreement. Procedure Description: Patient was brought to supervisor dental laboratory in fasting semi-sedated state after receiving Fentanyl and Benadryl achieiving moderate conscious sedated state. Using Xylocaine Anesthesia and Seldinger technique, a 6-English sheath was introduced in the right radial artery . Subsequently, selective coronary angiography was performed using a 5-English 3.5 bend Karlee catheter. Multiple views of the coronary artery including hemiaxial views were obtained. The 5-English pigtail catheter was used to cross the aortic valve and LVEDP was calculated. After removing the catheter a 6-English 3.75 EBU guiding catheter was introduced and after cannulating the left main a Omni Doppler wire was introduced in the distal LAD and IFR was calculated. After removing the catheter a 6-English 0.75 AL guiding catheter was introduced and after cannulating the right coronary ostium a 0.014 BMW J-wire was positioned in the distal PDA, subsequently a 2.25 x 28 mm Xience yandel point stent was advanced and deployed at 16 zacarias. Images were obtained and repeated and revealed a stable successful stenting. Following that, catheter and sheath were removed. Hemostasis was obtained with deployment of TR band . There was no immediate complication. Patient was returned to room in stable condition. Of note, the patient received a total of 7000 units of intravenous heparin as well as intra-arterial verapamil. He received an oral loading dose of clopidogrel, his ACT was followed. He had no chest discomfort or significant EKG changes. Findings: Fluoroscopy: Significant calcifications of the coronary arteries was noted Left main: This is a large size vessel, bifurcating into left circumflex and LAD, left main has no high-grade stenosis LAD: This is a large size vessel, reaching the apex giving rise to 3 diagonal branch, the first 2 are small in caliber. The first 2 diagonal branch had 80- 90% stenosis in the ostium. The mid LAD has a 50-60% plaque the rest of the vessel has no high-grade stenosis Left circumflex: This is a nondominant vessel, giving rise to 3 obtuse marginal branch, the stented segment in the first and third obtuse marginal branch are patent there is mild in-stent restenosis of 20%. This is a 20-30% plaque at the ostium of the left circumflex RCA: This is a large dominant vessel, bifurcating distally to PDA and PLV. Heavily calcified. The right PDA has an area of 80-90% stenosis, there is a 40% plaque in the PLV. The rest of the vessel has no high-grade stenosis Left Ventriculogram: Not performed Hemodynamics: There was no gradient across the aortic valve , LVEDP was 18-20 mmHg Conclusion: 1. Calcified coronary arteries 2. Patent stent in the left circumflex with mild in-stent restenosis 3. Mild disease in the mid LAD with normal IFR of 0.95 consistent with non- hemodynamically significant lesion 4. Significant disease in the right PDA 5. Successful stenting of the right PDA with reduction of the stenosis from 85% to 0% Recommendations: The patient will be continued on aspirin and Plavix for 1 week then he'll stop the aspirin and continue anticoagulation. Plavix will be continued for 6 months in addition to aggressive coronary risks modifications. The findings and the recommendations were discussed with the patient and the family and they were in full understanding and agreement. Duration of sedation is 46 minutes.
[2022-07-01 12:40] VITALS: BP 121/63; PULSE 62
== END | disposition home or self-care (01) ==
LOC: CATHCVL 07:44
PROVIDERS: ATTEND Internal Medicine Interventional Cardiology
DX: R07.89 Other chest pain (principal); I10 Essential (primary) hypertension; E11.9 Type 2 diabetes mellitus without complications; E78.5 Hyperlipidemia, unspecified; Z79.84 Long term (current) use of oral hypoglycemic drugs; Z79.899 Other long term (current) drug therapy
CPT/HCPCS: 93458; 93799; C9600; C1769 ×4; C1887 ×2; C1894; C1874; J2001; J3010; J1644; Q9967 ×2

== ENCOUNTER 2024-03-13 04:59 | Emergency (ER) | payer MEDICARE, OTHER ==
[2024-03-13 06:10] LABS: Basophils % (A) 1 %; Eosinophils # (A) 0.3 k/uL (0-0.7); Eosinophils % (A) 6 %; HCT 41.5 % (39.0-53.0); HGB 14.4 gm/dL (13.0-17.5); Lymphocytes # (A) 1.6 k/uL (1.0-4.8); Lymphocytes % (A) 36 %; MCHC 34.7 g/dL (31.0-37.0); Mean Platelet Volume 8.7; Monocytes # (A) 0.5 k/uL (0-1.0); Monocytes % (A) 10 %; Neutrophils # (A) 2.2 k/uL (1.3-7.7); Neutrophils % (A) 47 %; Platelet Count 123 k/uL (150-450); RDW 12.8 % (11.5-15.5); WBC 4.6 k/uL (3.8-10.6)
[2024-03-13 06:20] LABS: ALT 51 U/L (4-49); AST 55 U/L (17-59); African American GFR (CKD) >90 (>60 ml/min/1.73 sqM); Albumin 4.3 g/dL (3.5-5.0); Alkaline Phosphatase 41 U/L (38-126); Anion Gap 5 mmol/L; Blood Urea Nitrogen 17 mg/dL (9-20); Carbon Dioxide 30 mmol/L (22-30); Chloride 102 mmol/L (98-107); Glucose 80 mg/dL (74-99); MCV 92.4 fL (80.0-100.0); Non-African American GFR(CKD) >90 (>60 ml/min/1.73 sqM); Potassium 4.4 mmol/L (3.5-5.1); Sodium 137 mmol/L (137-145); Total Bilirubin 2.5 mg/dL (0.2-1.3); Total Protein 6.7 g/dL (6.3-8.2)
--- NOTE | 2024-03-13 07:01 | CT ---
EXAMINATION TYPE: CT abdomen pelvis wo con DATE OF EXAM: 03/13/2024 HISTORY: Right flank pain w/hx of renal stones. Negative gross hematuria CT DLP: 765.5 mGycm. Automated Exposure Control for Dose Reduction was Utilized. TECHNIQUE: CT scan of the abdomen and pelvis is performed without oral or IV contrast. COMPARISON: Prior CT March 09, 2018 FINDINGS: Within the limitations of a non-contrast study, the following observations are made. LUNG BASES: No significant abnormality is appreciated. LIVER/GB: Liver remains diffusely low density consistent with diffuse fatty infiltrative hepatocellul ar disease. Cholecystectomy clips are redemonstrated. PANCREAS: No significant abnormality is seen. SPLEEN: No significant abnormality is seen. ADRENALS: No significant abnormality is seen. KIDNEYS: There are approximately 3 punctate 2 mm nonobstructing calculi scattered throughout the left kidney. There is a single 3 mm nonobstructing calculus in the right kidney axial image 37. No hydron ephrosis or obstructing ureteral calculi are seen bilaterally. No obvious intraluminal calculus in th e urinary bladder. BOWEL: Normal-appearing appendix from cecum is incidentally noted. GENITAL ORGANS: Numerous brachytherapy seeds throughout the normal sized prostate gland are redemonst rated. LYMPH NODES: No new greater than 1cm abdominal or pelvic lymph nodes are appreciated. OSSEOUS STRUCTURES: Metallic hardware from total right hip arthroplasty is redemonstrated causing str eak artifact somewhat limiting evaluation of pelvic structures. Vacuum disc phenomenon with mild disc space narrowing at L1-L2 level. OTHER: No significant additional abnormality is seen. IMPRESSION: Tiny nonobstructing bilateral renal calculi. No hydronephrosis or obstructing ureteral ca lculi seen bilaterally. No new or acute finding present.
--- NOTE | 2024-03-13 07:10 | ED ---
Back Pain HPI - General Chief Complaint: Back Pain/Injury Stated Complaint: ABD Pain Time Seen by Provider: 03/13/24 05:25 Source: patient Limitations: no limitations - History of Present Illness Initial Comments: This patient is a 73-year-old man who presents for evaluation of right-sided back pain. He indicates from the mid thoracic area down to the lumbar area. The patient does not recall having any injury. He states that he has had kidney stone before and this is somewhat reminiscent. The patient does acknowledge however that movement makes the pain worse. Particularly when he attempts to go to seated position from supine. No change in bladder or bowel function. No radiation to the legs. MD Complaint: back pain Onset/Timin -: week(s) Similar Symptoms Previously: Yes Place: home Radiation: none Severity: severe Quality: aching Consistency: intermittent Improves With: immobilization Worsens With: movement Context: history of kidney stones Associated Symptoms: denies other symptoms - Related Data Home Medications Medication Instructions Recorded Confirmed Carvedilol [Coreg] 12.5 mg PO BID 02/24/15 07/01/22 Furosemide [Lasix] 20 mg PO MOWEFR 02/24/15 07/01/22 Losartan [Cozaar] 25 mg PO DAILY 02/24/15 07/01/22 Omeprazole [PriLOSEC] 20 mg PO AC-BRKFST 02/24/15 07/01/22 Aspirin EC [Ecotrin Low Dose] 81 mg PO DAILY 12/05/16 07/01/22 Potassium Citrate [Potassium 1,620 mg PO BID 12/05/16 07/01/22 Citrate ER] Vitamin B Complex 1 cap PO DAILY 12/05/16 07/01/22 Insulin Detemir (Levemir) [Levemir] 65 - 90 unit SQ BID PRN 12/23/16 07/01/22 Gabapentin [Neurontin] 300 mg PO BID 02/25/20 07/01/22 Rosuvastatin Calcium [Crestor] 40 mg PO HS 02/25/20 07/01/22 Tamsulosin HCl [Flomax] 0.4 mg PO HS 02/25/20 07/01/22 metFORMIN HCL [metFORMIN HCL ER] 500 mg PO DAILY 02/25/20 06/29/22 Apixaban [Eliquis] 5 mg PO BID 12/31/20 06/29/22 Ferrous Sulfate [Iron (65 MG 325 mg PO MOWETHSA 12/31/20 07/01/22 Elemental)] Isosorbide Mononitrate ER [Imdur] 30 mg PO DAILY 01/05/21 07/01/22 Cholecalciferol [Vitamin D3 (25 25 mcg PO DAILY 06/29/22 07/01/22 Mcg = 1000 Iu)] Ubidecarenone [Co Q-10] 100 mg PO DAILY 06/29/22 07/01/22 glipiZIDE [glipiZIDE ER] 5 mg PO DAILY 06/29/22 07/01/22 Previous Rx's Medication Instructions Recorded Clopidogrel [Plavix] 75 mg PO DAILY #90 tablet 07/01/22 Ibuprofen [Motrin] 600 mg PO Q8HR PRN #20 tab 03/13/24 methocarbamoL [Robaxin-750] 1,500 mg PO TID PRN #42 tab 03/13/24 methocarbamoL [Robaxin] 500 mg PO TID PRN #15 tab 03/13/24 tiZANidine HCL [Zanaflex] 2 mg PO TID #9 capsule 03/13/24 Allergies Allergy/AdvReac Type Severity Reaction Status Date / Time acetaminophen [From Percocet] Allergy Nausea & Verified 03/13/24 07:20 Vomiting & Diarrhea oxycodone [From Percocet] Allergy Nausea & Verified 03/13/24 07:20 Vomiting & Diarrhea Review of Systems ROS Statement: Those systems with pertinent positive or pertinent negative responses have been documented in the HPI. ROS Other: All systems not noted in ROS Statement are negative. Constitutional: Denies: fever, chills, weakness Respiratory: Denies: cough, dyspnea Cardiovascular: Denies: chest pain, palpitations, edema Gastrointestinal: Denies: abdominal pain, vomiting, diarrhea Genitourinary: Denies: dysuria, frequency, hematuria Musculoskeletal: Reports: as per HPI, back pain Skin: Denies: rash Neurological: Denies: headache, weakness, numbness, paresthesias Past Medical History Past Medical History: Coronary Artery Disease (CAD), Cancer, Chest Pain / Angina, Diabetes Mellitus, Deep Vein Thrombosis (DVT), GERD/Reflux, Hypertension, Myocardial Infarction ([place]), Pneumonia, Prostate Disorder, Renal Disease Additional Past Medical History / Comment(s): Hx of frequent kidney stones, hx Prostate Cancer (2016 with seed implants). hx colitis neuropathy in feet & legs, Back pain, hx Low iron, DVT x2 right leg, Last Myocardial Infarction Date:: 08/17/07 History of Any Multi-Drug Resistant Organisms: None Reported Past Surgical History: Cholecystectomy, Heart Catheterization With Stent, Joint Replacement, Orthopedic Surgery, Tonsillectomy Additional Past Surgical History / Comment(s): bilateral lasik eye surgery, L shoulder rotator cuff repair, L elbow bursa removal, Total Right Hip. Past Anesthesia/Blood Transfusion Reactions: Previous Problems w/ Anesthesia, Motion Sickness Additional Past Anesthesia/Blood Transfusion Reaction / Comment(s): trouble coming out of anesthesia & states hiccups for 4 days after anesthesia Date of Last Stent Placement:: 08/17/07 Past Psychological History: No Psychological Hx Reported Smoking Status: Never smoker Past Alcohol Use History: None Reported Past Drug Use History: None Reported - Past Family History Father Family Medical History: Cancer Additional Family Medical History / Comment(s): Father of lung cancer-he w as a smoker. Mother Family Medical History: Cancer Additional Family Medical History / Comment(s): Mother of ovarian cancer. General Exam Limitations: no limitations General appearance: alert, in no apparent distress Head exam: Present: atraumatic, normocephalic Eye exam: Present: normal appearance. Absent: scleral icterus, conjunctival injection Neck exam: Present: normal inspection, full ROM. Absent: tenderness, meningismus Respiratory exam: Present: normal lung sounds bilaterally. Absent: respiratory distress, wheezes, rales, rhonchi, stridor, chest wall tenderness, accessory muscle use Cardiovascular Exam: Present: regular rate, normal rhythm, normal heart sounds. Absent: systolic murmur, diastolic murmur, rubs, gallop GI/Abdominal exam: Present: soft. Absent: distended, tenderness, guarding, rebound, rigid, mass, pulsatile mass Back exam: Present: normal inspection, tenderness, paraspinal tenderness. Absent: full ROM, CVA tenderness (R), CVA tenderness (L) Neurological exam: Present: alert. Absent: motor sensory deficit Skin exam: Present: warm, dry, intact, normal color. Absent: rash Course Vital Signs 03/13/24 03/13/24 03/13/24 05:02 07:46 08:24 Temperature 98.4 F 98.1 F 98.2 F Pulse Rate 65 68 66 Respiratory 16 18 18 Rate Blood Pressure 152/83 173/80 168/80 O2 Sat by Pulse 98 97 99 Oximetry Medical Decision Making - Medical Decision Making The patient had CT scan of the abdomen and pelvis that did not reveal acute bony injury or obstructing kidney stone, by my interpretation. Was pt. sent in by a medical professional or institution (, [facility], [facility], urgent care, hospital, or correction...) When possible be specific @ -[No] Did you speak to anyone other than the patient for history (EMS, parent, family, police, friend...)? What history was obtained from this source @ -[No] Did you review nursing and triage notes (agree or disagree)? Why? @ -[I reviewed and agree with nursing and triage notes] Were old charts reviewed (outside hosp., previous admission, EMS record, old EKG, old radiological studies, urgent care reports/EKG's, correction records)? Report findings @ -[No old charts were reviewed] Differential Diagnosis (chest pain, altered mental status, abdominal pain women, abdominal pain men, vaginal bleeding, weakness, fever, dyspnea, syncope, headache, dizziness, GI bleed, back pain, seizure, CVA, palpatations, mental health, musculoskeletal)? @ -[Differential Back Pain: Strain, zoster, cauda equina syndrome, epidural abscess, vertebral osteomyelitis, discitis, fracture, subluxation, disc herniation, DJD, spinal stenosis, dissection, AAA, pancreatitis, peptic ulcer disease, pyelonephritis, kidney stone, this is not meant to be an all-inclusive list. EKG interpreted by me (3pts min.). @ -[As above] X-rays interpreted by me (1pt min.). @ -[None done] CT interpreted by me (1pt min.). @ -[I interpreted as above U/S interpreted by me (1pt. min.). @ -[None done] What testing was considered but not performed or refused? (CT, X-rays, U/S, labs)? Why? @ -[None] What meds were considered but not given or refused? Why? @ -[None] Did you discuss the management of the patient with other professionals (professionals i.e. , [facility], [facility], lab, RT, psych nurse, forensic social worker, pre algebra teacher, teacher, transit authority police officer, case packer and sealer)? Give summary @ -[No] Was smoking cessation discussed for >3mins.? @ -[No] Was critical care preformed (if so, how long)? @ -[No] Were there social determinants of health that impacted care today? How? (Homelessness, low income, unemployed, alcoholism, drug addiction, transportation, low edu. Level, literacy, decrease access to med. care, residential, rehab)? @ -[No] Was there de-escalation of care discussed even if they declined (Discuss DNR or withdrawal of care, Hospice)? DNR status @ -[No] What co-morbidities impacted this encounter? (DM, HTN, Smoking, COPD, CAD, Cancer, CVA, ARF, Chemo, Hep., AIDS, mental health diagnosis, sleep apnea, morbid obesity)? @ -[None] Was patient admitted / discharged? Hospital course, mention meds given and route, prescriptions, significant lab abnormalities, going to OR and other p ertinent info. @ -[This patient is 73-year-old man with right sided thoracic and lumbar back pain. The patient does have musculoskeletal component. Given his history that this was similar to stone he did have CT which is unremarkable. The patient is feeling better following treatment. Discussed appropriate further care and follow-up Undiagnosed new problem with uncertain prognosis? @ -[No] Drug Therapy requiring intensive monitoring for toxicity (Heparin, Nitro, Insulin, Cardizem)? @ -[No] Were any procedures done? @ -[No] Diagnosis/symptom? @ -[Acute thoracic and lumbar back strain Acute, or Chronic, or Acute on Chronic? @ -Acute Uncomplicated (without systemic symptoms) or Complicated (systemic symptoms)? @ -[Uncomplicated Side effects of treatment? @ -[No] Exacerbation, Progression, or Severe Exacerbation? @ -[No] Poses a threat to life or bodily function? How? (Chest pain, [place], [place], pneumonia, PE, COPD, DKA, ARF, appy, cholecystitis, CVA, Diverticulitis, Homicidal, Suic idal, threat to staff... and all critical care pts) @ -[No] - Lab Data Result diagrams: 03/13/24 06:00 03/13/24 06:00 Lab Results 03/13/24 03/13/24 Range/Units 06:00 06:00 WBC 4.6 (3.8-10.6) k/uL RBC 4.50 (4.30-5.90) m/uL Hgb 14.4 (13.0-17.5) gm/dL Hct 41.5 (39.0-53.0) % MCV 92.4 D (80.0-100.0) fL MCH 32.0 (25.0-35.0) pg MCHC 34.7 (31.0-37.0) g/dL RDW 12.8 (11.5-15.5) % Plt Count 123 L (150-450) k/uL MPV 8.7 Neutrophils % 47 % Lymphocytes % 36 % Monocytes % 10 % Eosinophils % 6 % Basophils % 1 % Neutrophils # 2.2 (1.3-7.7) k/uL Lymphocytes # 1.6 (1.0-4.8) k/uL Monocytes # 0.5 (0-1.0) k/uL Eosinophils # 0.3 (0-0.7) k/uL Basophils # 0.0 (0-0.2) k/uL Sodium 137 (137-145) mmol/L Potassium 4.4 (3.5-5.1) mmol/L Chloride 102 (98-107) mmol/L Carbon Dioxide 30 (22-30) mmol/L Anion Gap 5 mmol/L BUN 17 (9-20) mg/dL Creatinine 0.78 (0.66-1.25) mg/dL Est GFR (CKD-EPI)AfAm >90 (>60 ml/min/1.73 sqM) Est GFR (CKD-EPI)NonAf >90 (>60 ml/min/1.73 sqM) Glucose 80 (74-99) mg/dL Calcium 9.0 (8.4-10.2) mg/dL Total Bilirubin 2.5 H (0.2-1.3) mg/dL AST 55 (17-59) U/L ALT 51 H (4-49) U/L Alkaline Phosphatase 41 (38-126) U/L Total Protein 6.7 (6.3-8.2) g/dL Albumin 4.3 (3.5-5.0) g/dL Disposition Clinical Impression: Strain of lumbar region Disposition: HOME SELF-CARE Condition: Good Instructions (If sedation given, give patient instructions): Acute Low Back Pain (ED) Prescriptions: Ibuprofen [Motrin] 600 mg PO Q8HR PRN #20 tab PRN Reason: Pain methocarbamoL [Robaxin] 500 mg PO TID PRN #15 tab PRN Reason: muscle spasms methocarbamoL [Robaxin-750] 1,500 mg PO TID PRN #42 tab PRN Reason: Pain tiZANidine HCL [Zanaflex] 2 mg PO TID #9 capsule Is patient prescribed a controlled substance at d/c from ED?: No Referrals: Ilana Chambers MD [Primary Care Provider] - 1-2 days
[2024-03-13 07:48] VITALS: RESP 18
[2024-03-13] MEDS: HYDROmorphone 0.5 MG/0.5 ML SYRINGE IVP STA (08:14)
[2024-03-13 08:29] VITALS: BP 168/80; PULSE 66; TEMP 98.2
== END 2024-03-13 08:29 | disposition home or self-care (01) ==
LOC: EC 04:59
DX: S39.012A Strain of muscle, fascia and tendon of lower back, initial encounter (principal); Z88.5 Allergy status to narcotic agent; Z90.49 Acquired absence of other specified parts of digestive tract; X58.XXXA Exposure to other specified factors, initial encounter
CPT/HCPCS: 36415; 80053; 85025; 74176; 99284; 96374; J1170

== ENCOUNTER → 2024-05-06 | Outpatient (CLI) | payer MEDICARE, OTHER ==
--- NOTE | 2024-05-13 18:00 | MR ---
EXAMINATION TYPE: MR lumbar spine wo con DATE OF EXAM: 05/06/2024 COMPARISON: 01/18/2018 HISTORY: Chronic lower back pain. CONTRAST: 0 mL intravenous Gadavist. TECHNIQUE: Multiplanar, multisequence images of the lumbar spine were acquired. FINDINGS: L5-S1: No significant disc bulge or disc herniation. No spinal canal stenosis. No foraminal stenosi s. Facet hypertrophy is present. L4-L5: No significant disc bulge or disc herniation. No spinal canal stenosis. No foraminal stenosi s. Facet hypertrophy is present with minimal posterior lateral thecal sac contact. No spinal canal s tenosis L3-L4: No significant disc bulge or disc herniation. No spinal canal stenosis. No foraminal stenosi s. Facet hypertrophy is present with minimal ligamentum flavum laxity L2-L3: No significant disc bulge or disc herniation. No spinal canal stenosis. No foraminal stenosi s. Facet hypertrophy is present with minimal ligamentum flavum laxity L1-L2: Degenerative disc change with narrowing of disc height is present. No focal disc herniation is evident. Facet hypertrophy is minimal ligamentum flavum laxity has posterior lateral thecal sac flat tening. No spinal canal stenosis is present. T12-L1: No significant disc bulge or disc herniation. No spinal canal stenosis. No foraminal stenos is. Mild facet hypertrophy is present IMPRESSION: 1. Mild degenerative disc disease with narrowing of disc height and some facet hypertrophy L1-2. No s tenosis is present. 2. Facet hypertrophy with ligamentum flavum laxity through the mid to lower lumbar spine without spin al canal stenosis. [facility], , 05/13/2024 5:58 PM
== END | disposition home or self-care (01) ==
LOC: RADMRIMAIN 12:40
PROVIDERS: ATTEND Orthopaedic Surgery Orthopaedic Surgery of the Spine
DX: M47.816 Spondylosis without myelopathy or radiculopathy, lumbar region
CPT/HCPCS: 72148

== ENCOUNTER → 2024-05-20 | Outpatient (CLI) | payer MEDICARE, OTHER ==
[2024-05-20 10:11] VITALS: BP 145/80; PULSE 59; RESP 18
--- NOTE | 2024-05-20 15:05 | P.PAINPG ---
PQRS Measure Charge Sheet Comment: HISTORY OF PRESENT ILLNESS: A 73 yr old male w at side as a referral from Dr Olivo presents today w severe and chronic LBP > 1 yr secondary to radiculopathy, spondylosis and facet arthropathy without myelopathy for evaluation. Pt states pain level is provoked at 10 /10 in intensity, constant, localized in the lumbar spine, predominantly axial, dull in character without shooting pain. Pain is provoked by over activity and PT x 2 wks in Sep 2023. Pt had BL RFA L2-L5 in 2018 which was ineffective. Pain is alleviated by physician guided home stretches daily since Sep 2023, heat, medications (Tyl, Neurontin, Ibu), repositioning and rest . PMH: OA, CAD, Prostates CA (2015), Angina, Diabetes Mellitus, RLE DVT x2, GERD, HTN, [place] (2007), Nephrolithiasis, Iron Deficiency Anemia PSH: Prostate Seed Implants (2015), Cholecystectomy, Heart Catheterization With Stent (2007), R Toal Hip Replacement, L RCT Repair, L Elbow Bursa Surgery, Tonsillectomy, BL Lasik Surgery SH: Negative x3 FH: Fa- Lung CA. Mo- Ovarian CA All: See list Meds: See list REVIEW OF ORGAN SYSTEMS: CONSTITUTIONAL: No fevers or chills. No recent weight loss. NEUROLOGICAL: + numbness and tingling along the distal extremities. No seizure disorders or headaches. MUSCULOSKELETAL: + pain PSYCHIATRIC: Denies current depression or suicidal thoughts. Physical Examinations : Constitutional : Cooperative , not in acute distress . Neurologic : Cranial nerve II to XII intact. No focal neurological deficits. Psychiatric : alert & oriented x 3. Matching mood & appropriate affect. Judgment & insight intact. Musculoskeletal : Cervical Spine Motor strength in the deltoid and biceps: Normal right side. Normal Left side Motor strength biceps and the wrist extensors: Normal right side . Normal left side Motor strength in the triceps muscle: Normal right side. Normal left side Deep tendon reflexes: Normal at the biceps. Normal at Brachioradialis. Normal at triceps Vertebral body tenderness to deep palpation over Cervical facet loading test: positive bilaterally Spurling test: positive bilaterally Neck distraction test: positive bilaterally Sandra sign: positive bilaterally Lumbar spine Motor strength lower extremities ,thigh and legs 5/5 Right side , 5/5 Left side Deep tendon reflexes : Normal Knee Jerk. Normal Ankle Jerk Vertebral body tenderness over L5 Hopson Test positive BL L5-S1 Lumbar facet Loading Test: positive Right / positive Left Range of motion of the lumbar spine Flexion 30 degrees, extension 10 degrees Straight Leg Raise test: Left/ Right positive at degrees Sheri test: positive right / positive left. Severe tenderness over the Sacroiliac joint on the Right / Left sides Gaenslen test: positive bilaterally Seated flexion test: positive bilaterally. Sacral spine : Severe tenderness over the Sacroiliac joint: right side / left side Range of motion: Flexion of the lumbar spine <60 degrees Range of motion: Extension of the lumbar spine <20 degrees Gaenslen's Test positive Sheri test: positive right side / left side Thigh Thrust Test Sacral Thrust Test Imaging: MRI non contrast lumbar spine from 05/06/24 reviewed Assessment/ Plan : L3-L5 facet hypertrophy Recommendation of OLVIN L5-S1 #1. Risks, benefits of procedure discussed and patient verbalized understanding. Admits to anti- coagulant use or medical history of diabetes. Protocol for discontinuation/ continuation of medications kylee procedure discussed. All questions answered. I have spent greater than 30 minutes on patient care today. Dr Velasco was available by phone for the evaluation of this patient. The time was used to review the medical records including relevant urine studies and Prescription history (MAPs), review of the available imaging, evaluation and examination of the patient, coordination of care with the medical staff and if applicable referring physicians, as well as creation of the medical record PQRS Narrative: Smoking Status Never smoker Home Medications: Ambulatory Orders Carvedilol [Coreg] 12.5 mg PO BID 02/24/15 Furosemide [Lasix] 20 mg PO MOWEFR 02/24/15 Losartan [Cozaar] 25 mg PO DAILY 02/24/15 Omeprazole [PriLOSEC] 20 mg PO AC-BRKFST 02/24/15 Aspirin EC [Ecotrin Low Dose] 81 mg PO DAILY 12/05/16 Potassium Citrate [Potassium Citrate ER] 1,620 mg PO BID 12/05/16 Vitamin B Complex 1 cap PO DAILY 12/05/16 Insulin Detemir (Levemir) [Levemir] 65 - 90 unit SQ BID PRN 12/23/16 Gabapentin [Neurontin] 300 mg PO BID 02/25/20 Rosuvastatin Calcium [Crestor] 40 mg PO HS 02/25/20 Tamsulosin HCl [Flomax] 0.4 mg PO HS 02/25/20 metFORMIN HCL [metFORMIN HCL ER] 500 mg PO DAILY 02/25/20 Apixaban [Eliquis] 5 mg PO BID 12/31/20 Ferrous Sulfate [Iron (65 MG Elemental)] 325 mg PO MOWETHSA 12/31/20 Isosorbide Mononitrate ER [Imdur] 30 mg PO DAILY 01/05/21 Cholecalciferol [Vitamin D3 (25 Mcg = 1000 Iu)] 25 mcg PO DAILY 06/29/22 Ubidecarenone [Co Q-10] 100 mg PO DAILY 06/29/22 glipiZIDE [glipiZIDE ER] 5 mg PO DAILY 06/29/22 Clopidogrel [Plavix] 75 mg PO DAILY #90 tablet 07/01/22 Ibuprofen [Motrin] 600 mg PO Q8HR PRN #20 tab 03/13/24 methocarbamoL [Robaxin-750] 1,500 mg PO TID PRN #42 tab 03/13/24 methocarbamoL [Robaxin] 500 mg PO TID PRN #15 tab 03/13/24 tiZANidine HCL [Zanaflex] 2 mg PO TID #9 capsule 03/13/24 Controlled Substance Measures - Controlled Substance Measures Is patient prescribed a controlled substance at discharge?: No
== END | disposition home or self-care (01) ==
LOC: PNWHC3 09:02
PROVIDERS: ATTEND Specialist
DX: M51.35 Other intervertebral disc degeneration, thoracolumbar region (principal); M47.815 Spondylosis without myelopathy or radiculopathy, thoracolumbar region; M51.26 Other intervertebral disc displacement, lumbar region; Z88.1 Allergy status to other antibiotic agents; Z88.5 Allergy status to narcotic agent
CPT/HCPCS: 99202

== ENCOUNTER 2024-06-06 06:32 | Day surgery (SDC) | payer MEDICARE, OTHER ==
[2024-06-06 07:28] VITALS: TEMP 97
[2024-06-06 07:33] LABS: Glucose,Whole Blood 89 mg/dL (70-110)
[2024-06-06] MEDS ORDERED: IOPAMIDOL M300 15ML VIAL ONE (08:09)
[2024-06-06] MEDS ORDERED: methylPREDNISolone ACETATE 80 MG/ML 1 ML VIAL ONE (08:09)
[2024-06-06] MEDS ORDERED: LACTATED RINGERS 1,000 ML IV SCH (08:11)
--- NOTE | 2024-06-06 08:30 | P.PCN ---
Description of Procedure: PREOPERATIVE DIAGNOSIS: 1- Lumbar Degenerative Disc Diseases 2-Lumbar spondylosis with Facet arthropathy without myelopathy. 3-lumbar spinal stenosis POSTOPERATIVE DIAGNOSIS: 1-lumbar degenerative disc disease. 2-lumbar spondylosis with facet arthropathy without myelopathy. 3-lumbar spinal stenosis. PROCEDURE Injection of radio contrast material into L5-S1 interspace, interpretation of epidurogram, injection of steroid at L5-S1 epidural space under fluoroscopic guidance. ANESTHESIA: Lidocaine 1% subcutaneously. In OR continuous pulse ox, EKG, blood pressure and verbal communication was maintained with the patient. EBL: Minimal PROCEDURE INDICATION: Before the procedure were discussed with the patient detailed procedure, alternatives, complications including infection, bleeding, nerve damage, paralysis all of which could be permanent. Patient understands and all questions were answered. PROCEDURE DESCRIPTION : After getting consent, patient in OR in prone position. Back was prepped with chlorhexidine and draped in sterile fashion. After injecting 10 mL of 1% lidocaine subcutaneously, a 20-gauge Tuohy needle was introduced at L5-S1 interspace with loss of resistance technique using a syringe filled with air. Negative CSF, negative blood, negative paresthesia. Needle position was confirmed with AP and lateral view of the fluoroscope. After repeat negative aspiration 2 mL of Omnipaque 200 water soluble contrast was injected. Contrast was noted in the epidural space. No contrast was noted into intrathecal or intravascular space. After repeat negative aspiration 6 mL solution was injected intermittently which consists of 5 mL of preservative-free normal saline mixed with 1 mL of 80 mg Depo-Medrol. Needle was withdrawn intact. Skin was cleansed and Band-Aids was applied. DISPOSITION / PLANS: The patient tolerated the procedure well. No complication. The patient was placed in a supine position and transferred to the recovery area in a stable condition for observation. There was no evidence of lower extremity motor or sensory deficit after the procedure. Patient was discharged from the recovery room after meeting discharge criteria. Home discharge instructions were given to the patient by the staff. The patient was reexamined prior to discharge. The patient will schedule a follow up in the clinic in 2-4 weeks.
--- NOTE | 2024-06-06 08:35 | FL ---
Fluoroscopy History: PAIN 8 sec [place] .[id number] DAP dose [facility], , 06/06/2024 8:33 AM
[2024-06-06 09:03] VITALS: BP 111/65; PULSE 58; RESP 20
== END 2024-06-06 09:04 | disposition home or self-care (01) ==
LOC: ORPAIN 06:32
PROVIDERS: ATTEND Pain Medicine Interventional Pain Medicine
CPT/HCPCS: 62323

== ENCOUNTER → 2024-12-16 | Outpatient (CLI) | payer MEDICARE, OTHER ==
[2024-12-16 13:08] VITALS: BP 132/69; PULSE 64; RESP 16; TEMP 97.1
--- NOTE | 2024-12-16 16:39 | P.PAINPG ---
PQRS Measure Charge Sheet Comment: HISTORY OF PRESENT ILLNESS: A 74 yr old male w at side presents today w severe and chronic LBP > 1 yr secondary to radiculopathy, spondylosis and facet arthropathy without myelopathy for evaluation s/p OLVIN L5-S1 #1. Pt states he experienced 50 % pain relief x 2 wks s/p procedure. Pt states pain level is provoked at 2-9 /10 in intensity, intermittent, localized in the lumbar spine, predominantly axial, dull in character without shooting pain. Pain is provoked by over activity and PT x 2 wks in Sep 2023. Pain is alleviated by physician guided home stretches daily since Sep 2023, heat, medications, repositioning and rest . Interventional procedures include BL RFA L2-L5 (2018, ineffective), OLVIN L5-S1 x1 (06/06) Medications include Neurontin, Tyl, Ibu REVIEW OF ORGAN SYSTEMS: CONSTITUTIONAL: No fevers or chills. No recent weight loss. NEUROLOGICAL: + numbness and tingling along the distal extremities. No seizure disorders or headaches. MUSCULOSKELETAL: + pain PSYCHIATRIC: Denies current depression or suicidal thoughts. Physical Examinations : Constitutional : Cooperative , not in acute distress . Neurologic : Cranial nerve II to XII intact. No focal neurological deficits. Psychiatric : alert & oriented x 3. Matching mood & appropriate affect. Judgment & insight intact. Musculoskeletal : Cervical Spine Motor strength in the deltoid and biceps: Normal right side. Normal Left side Motor strength biceps and the wrist extensors: Normal right side . Normal left side Motor strength in the triceps muscle: Normal right side. Normal left side Deep tendon reflexes: Normal at the biceps. Normal at Brachioradialis. Normal at triceps Vertebral body tenderness to deep palpation over Cervical facet loading test: positive bilaterally Spurling test: positive bilaterally Neck distraction test: positive bilaterally Sandra sign: positive bilaterally Lumbar spine Motor strength lower extremities ,thigh and legs 5/5 Right side , 5/5 Left side Deep tendon reflexes : Normal Knee Jerk. Normal Ankle Jerk Vertebral body tenderness over L5 Hopson Test positive BL L5-S1 Lumbar facet Loading Test: positive Right / positive Left Range of motion of the lumbar spine Flexion 30 degrees, extension 10 degrees Straight Leg Raise test: Left/ Right positive at degrees Sheri test: positive right / positive left. Severe tenderness over the Sacroiliac joint on the Right / Left sides Gaenslen test: positive bilaterally Seated flexion test: positive bilaterally. Sacral spine : Severe tenderness over the Sacroiliac joint: right side / left side Range of motion: Flexion of the lumbar spine <60 degrees Range of motion: Extension of the lumbar spine <20 degrees Gaenslen's Test positive Sheri test: positive right side / left side Thigh Thrust Test Sacral Thrust Test Imaging: MRI non contrast lumbar spine from 05/06/24 reviewed Assessment/ Plan : L3-L5 facet hypertrophy Recommendation of medication management. [place] 7.5/325mg #60 w 1 RF. Use, side effects, adverse reactions and safe storage discussed. Opiate/narcotic agreement signed 12/16/2024. Will follow-up with orthopedic surgery to explore additional treatment options. All questions answered. I have spent greater than 30 minutes on patient care today. Dr Velasco was available by phone for the evaluation of this patient. The time was used to review the medical records including relevant urine studies and Prescription history (MAPs), review of the available imaging, evaluation and examination of the patient, coordination of care with the medical staff and if applicable referring physicians, as well as creation of the medical record - Pain Location Bilateral Lower Back Non-Pharmacological Interventions: Heat, Ice, Inactivity, Physical Therapy, Position/Reposition Pharmacological Interventions: Epidural, PRN Medication, Topical Medication PQRS Narrative: Smoking Status Never smoker Narcotic Agreement Date Signed 05/20/24 Hx Alcohol Use (MH) No Home Medications: Ambulatory Orders Carvedilol [Coreg] 12.5 mg PO BID 02/24/15 Furosemide [Lasix] 20 mg PO MOWEFR 02/24/15 Losartan [Cozaar] 25 mg PO DAILY 02/24/15 Omeprazole [PriLOSEC] 20 mg PO AC-BRKFST 02/24/15 Aspirin EC [Ecotrin Low Dose] 81 mg PO DAILY 12/05/16 Potassium Citrate [Potassium Citrate ER] 1,620 mg PO BID 12/05/16 Vitamin B Complex 1 cap PO DAILY 12/05/16 Gabapentin [Neurontin] 300 mg PO DAILY 02/25/20 Rosuvastatin Calcium [Crestor] 40 mg PO HS 02/25/20 Tamsulosin HCl [Flomax] 0.4 mg PO HS 02/25/20 metFORMIN HCL [metFORMIN HCL ER] 500 mg PO DAILY 02/25/20 Apixaban [Eliquis] 5 mg PO BID 12/31/20 Ferrous Sulfate [Iron (65 MG Elemental)] 325 mg PO MOWETHSA 12/31/20 Isosorbide Mononitrate ER [Imdur] 30 mg PO DAILY 01/05/21 Cholecalciferol [Vitamin D3 (25 Mcg = 1000 Iu)] 25 mcg PO DAILY 06/29/22 Ubidecarenone [Co Q-10] 100 mg PO SUTUTHSA 06/29/22 glipiZIDE [glipiZIDE ER] 5 mg PO BID 06/29/22 Ezetimibe [Zetia] 10 mg PO DAILY 05/31/24 Ibuprofen [Motrin] 800 mg PO Q8HR PRN 05/31/24 Insulin Glargine,Hum.rec.anlog [Lantus Solostar Pen] 65 - 90 units SQ BID PRN 05/31/24 HYDROcodone/APAP 7.5-325MG [[place] 7.5-325] 1 tab PO BID PRN 30 Days #60 tab 12/16/24 HYDROcodone/APAP 7.5-325MG [[place] 7.5-325] 1 tab PO BID PRN 30 Days #60 tab 12/16/24 Controlled Substance Measures - Controlled Substance Measures Is patient prescribed a controlled substance at discharge?: Yes When asked, does pt state using other controlled substances?: No If prescribed controlled substance>3 days was MAPS reviewed?: Yes If Rx opioid, was Start Talking consent form obtained?: Yes Was information provided regarding opioid addiction?: Yes
== END ==
LOC: PNWHC3 12:41
PROVIDERS: ATTEND Specialist
DX: M47.26 Other spondylosis with radiculopathy, lumbar region (principal); M62.830 Muscle spasm of back; M43.16 Spondylolisthesis, lumbar region; Z88.5 Allergy status to narcotic agent
CPT/HCPCS: 99211

== ENCOUNTER → 2025-02-10 | Outpatient (CLI) | payer MEDICARE, OTHER ==
[2025-02-10 12:57] VITALS: BP 125/69; PULSE 61; RESP 16
--- NOTE | 2025-02-10 16:00 | P.PAINPG ---
Objective - Vital Signs Vital signs: Intake & Output 02/09/25 02/10/25 02/10/25 18:59 06:59 18:59 Weight 92.986 kg PQRS Measure Charge Sheet Comment: HISTORY OF PRESENT ILLNESS: A 74 yr old male w at side presents today w severe and chronic LBP > 1 yr secondary to radiculopathy, spondylosis and facet arthropathy without myelopathy for evaluation s/p OLVIN L5-S1 #1. Pt states he experienced 50 % pain relief x 2 wks s/p procedure. Pt states pain level is provoked at 2-9 /10 in intensity, intermittent, localized in the lumbar spine, predominantly axial, dull in character without shooting pain. Pain is provoked by over activity and PT x 2 wks in Sep 2023. Pain is alleviated by physician guided home stretches daily since Sep 2023, heat, medications, repositioning and rest . Interventional procedures include BL RFA L2-L5 (2018, ineffective), OLVIN L5-S1 x1 (06/06) Medications include Neurontin, Tyl, Ibu REVIEW OF ORGAN SYSTEMS: CONSTITUTIONAL: No fevers or chills. No recent weight loss. NEUROLOGICAL: + numbness and tingling along the distal extremities. No seizure disorders or headaches. MUSCULOSKELETAL: + pain PSYCHIATRIC: Denies current depression or suicidal thoughts. Physical Examinations : Constitutional : Cooperative , not in acute distress . Neurologic : Cranial nerve II to XII intact. No focal neurological deficits. Psychiatric : alert & oriented x 3. Matching mood & appropriate affect. Judgment & insight intact. Musculoskeletal : Cervical Spine Motor strength in the deltoid and biceps: Normal right side. Normal Left side Motor strength biceps and the wrist extensors: Normal right side . Normal left side Motor strength in the triceps muscle: Normal right side. Normal left side Deep tendon reflexes: Normal at the biceps. Normal at Brachioradialis. Normal at triceps Vertebral body tenderness to deep palpation over Cervical facet loading test: positive bilaterally Spurling test: positive bilaterally Neck distraction test: positive bilaterally Sandra sign: positive bilaterally Lumbar spine Motor strength lower extremities ,thigh and legs 5/5 Right side , 5/5 Left side Deep tendon reflexes : Normal Knee Jerk. Normal Ankle Jerk Vertebral body tenderness over L5 Hopson Test positive BL L5-S1 Lumbar facet Loading Test: positive Right / positive Left Range of motion of the lumbar spine Flexion 30 degrees, extension 10 degrees Straight Leg Raise test: Left/ Right positive at degrees Sheri test: positive right / positive left. Severe tenderness over the Sacroiliac joint on the Right / Left sides Gaenslen test: positive bilaterally Seated flexion test: positive bilaterally. Sacral spine : Severe tenderness over the Sacroiliac joint: right side / left side Range of motion: Flexion of the lumbar spine <60 degrees Range of motion: Extension of the lumbar spine <20 degrees Gaenslen's Test positive Sheri test: positive right side / left side Thigh Thrust Test Sacral Thrust Test Imaging: MRI non contrast lumbar spine from 05/06/24 reviewed Assessment/ Plan : L3-L5 facet hypertrophy Recommendation of medication management. [place] 7.5/325mg #60 w 1 RF. UDS 02/10/25. Use, side effects, adverse reactions and safe storage discussed. Opiate/narcotic agreement signed 12/16/2024. Will follow-up with orthopedic surgery to explore additional treatment options. All questions answered. I have spent greater than 30 minutes on patient care today. Dr Velasco was available by phone for the evaluation of this patient. The time was used to review the medical records including relevant urine studies and Prescription history (MAPs), review of the available imaging, evaluation and examination of the patient, coordination of care with the medical staff and if applicable referring physicians, as well as creation of the medical record - Pain Location Bilateral Lower Back Non-Pharmacological Interventions: Chiropractic Treatment, Heat, Home Exercise, Ice, Inactivity, Massage, Physical Therapy, Position/Reposition, Relaxation Technique, Sitting, Standing, Stretching Pharmacological Interventions: Block, Epidural, PRN Medication, Scheduled Medication, Topical Medication PQRS Narrative: Smoking Status Never smoker Narcotic Agreement Date Signed 12/16/24 Hx Alcohol Use (MH) No Home Medications: Ambulatory Orders Carvedilol [Coreg] 12.5 mg PO BID 02/24/15 Furosemide [Lasix] 20 mg PO MOWEFR 02/24/15 Losartan [Cozaar] 25 mg PO DAILY 02/24/15 Omeprazole [PriLOSEC] 20 mg PO AC-BRKFST 02/24/15 Aspirin EC [Ecotrin Low Dose] 81 mg PO DAILY 12/05/16 Potassium Citrate [Potassium Citrate ER] 1,620 mg PO BID 12/05/16 Vitamin B Complex 1 cap PO DAILY 04/24/17 Gabapentin [Neurontin] 300 mg PO DAILY 02/25/20 Rosuvastatin Calcium [Crestor] 40 mg PO HS 02/25/20 Tamsulosin HCl [Flomax] 0.4 mg PO HS 02/25/20 metFORMIN HCL [metFORMIN HCL ER] 500 mg PO DAILY 02/25/20 Apixaban [Eliquis] 5 mg PO BID 12/31/20 Ferrous Sulfate [Iron (65 MG Elemental)] 325 mg PO MOWETHSA 12/31/20 Isosorbide Mononitrate ER [Imdur] 30 mg PO DAILY 01/05/21 Cholecalciferol [Vitamin D3 (25 Mcg = 1000 Iu)] 25 mcg PO DAILY 06/29/22 Ubidecarenone [Co Q-10] 100 mg PO SUTUTHSA 06/29/22 glipiZIDE [glipiZIDE ER] 5 mg PO BID 06/29/22 Ezetimibe [Zetia] 10 mg PO DAILY 05/31/24 Ibuprofen [Motrin] 800 mg PO Q8HR PRN 05/31/24 Insulin Glargine,Hum.rec.anlog [Lantus Solostar Pen] 65 - 90 units SQ BID PRN 05/31/24 HYDROcodone/APAP 7.5-325MG [[place] 7.5-325] 1 tab PO BID PRN 30 Days #60 tab 02/10/25 HYDROcodone/APAP 7.5-325MG [[place] 7.5-325] 1 tab PO BID PRN 30 Days #60 tab 02/10/25 Controlled Substance Measures - Controlled Substance Measures Is patient prescribed a controlled substance at discharge?: Yes When asked, does pt state using other controlled substances?: No If prescribed controlled substance>3 days was MAPS reviewed?: Yes
== END ==
LOC: PNWHC3 12:07
PROVIDERS: ATTEND Specialist
DX: M47.26 Other spondylosis with radiculopathy, lumbar region (principal); Z88.5 Allergy status to narcotic agent; Z88.6 Allergy status to analgesic agent
CPT/HCPCS: 80307; G0463; 99212

== ENCOUNTER → 2025-02-11 | Outpatient (CLI) | payer MEDICARE, OTHER ==
[2025-02-11 15:24] VITALS: BP 105/56; PULSE 82; RESP 16; TEMP 98.4
--- NOTE | 2025-02-11 15:58 | P.SLEEP ---
History of Present Illness H&P Date: 02/11/25 This is a 74-year-old male patient is coming in for sleep apnea evaluation. The patient patient currently is sleeping in a separate bedroom as his loud snoring has bothered his for years. He has been noted to have choking and gasping and prolonged apneas by the . Due to concerns of sleep apnea, the patient was referred for further investigation. For now, the patient is going to bed between 10 PM and midnight and he gets out of bed between 6 and 8 AM in the morning. He is averaging around 7 to 8 hours of sleep. He feels tired at all times and he has some degree of sleepiness with an [place] score of 8. He easily fall asleep when he is on the passenger seat. He does not fall asleep while driving. Occasionally takes naps during the day. He is a nose breather. He has a dry mouth in the morning and the patient prefers to sleep on his side. No nocturnal chest pain or shortness of breath. He has chronic grinding and the patient was given a bite guard by his dentist. He has no significant weight gain over the years. His weight has remained stable. No sleep paralysis. No hallucinations. No cataplexy. No reported parasomnias. On a separate note, the patient has an extensive cardiovascular history. The patient is known to have coronary artery disease and over the years he has developed congestion heart failure progressive drop in his left ventricular ejection fraction with the most recent echocardiogram done on this patient on 05/16/2024 showed an ejection fraction of 34% with mild tricuspid regurgitation and mild to moderate mitral regurgitation. The patient has had previous PA, most recent cardiac catheterization was in December 2020 and subsequent the patient had a PCI and stenting on 07/01/2022 where a stent was inserted in the PDA. He also has diabetes mellitus type 2, hypertension, hyperlipidemia and peripheral vascular disease. He has chronic claudication. He has had previous history of DVT and maintained on long-term anticoagulation with Eliquis. He has history of prostate cancer treated by radiation therapy, peripheral neuropathy, chronic back pain and the patient has been maintained on Malin. No intake of any muscle relaxants. No anxiety. No depression. No head trauma. No stroke. No history of any atrial fibrillation. Review of Systems Constitutional: Reports daytime sleepiness, Reports fatigue Eyes: denies as per HPI, denies blurred vision, denies bulging eye, denies decreased vision, denies diplopia, denies discharge, denies dry eye, denies irritation, denies itching, denies pain, denies photophobia, denies loss of peripheral vision, denies loss of vision, denies tunnel vision/blind spots Ears: deny: decreased hearing, ear discharge, earache, tinnitus Ears, nose, mouth and throat: Reports as per HPI (Grinding of the teeth) Breasts: absent: as per HPI, gynecomastia Cardiovascular: Reports claudication, Reports high blood pressure Respiratory: Reports as per HPI, Reports snoring Gastrointestinal: Reports as per HPI Genitourinary: Reports as per HPI Musculoskeletal: Reports low back pain Musculoskeletal: absent: ankle pain, ankle stiffness, ankle swelling, as per HPI, elbow pain, elbow stiffness, elbow swelling, foot pain, foot stiffness, foot swelling, hand pain, hand stiffness, hand swelling, hip pain, hip stiffness, hip swelling, knee pain, knee stiffness, knee swelling, shoulder pain, shoulder stiffness, shoulder swelling, wrist pain, wrist stiffness, wrist swelling Integumentary: Reports as per HPI Neurological: Reports as per HPI Psychiatric: Reports difficulty concentrating, Reports hypersomnia Endocrine: Reports fatigue Hematologic/Lymphatic: Reports as per HPI Allergic/Immunologic: Reports as per HPI Past Medical History Past Medical History: Coronary Artery Disease (CAD), Cancer, Chest Pain / Angina, Diabetes Mellitus, Deep Vein Thrombosis (DVT), GERD/Reflux, Hyperlipidemia, Hypertension, Myocardial Infarction (PA), Osteoarthritis (OA), Pneumonia, Prostate Disorder, Renal Disease Additional Past Medical History / Comment(s): Hx of frequent kidney stones, hx Prostate Cancer (2016 with seed implants). hx colitis neuropathy in feet & legs, Back pain, hx Low iron, DVT x2 right leg,, snoring, Last Myocardial Infarction Date:: 08/17/07 History of Any Multi-Drug Resistant Organisms: None Reported Past Surgical History: Cholecystectomy, Heart Catheterization With Stent, Joint Replacement, Orthopedic Surgery, Tonsillectomy Additional Past Surgical History / Comment(s): bilateral lasik eye surgery, L shoulder rotator cuff repair, L elbow bursa removal, Total Right Hip. Past Anesthesia/Blood Transfusion Reactions: Previous Problems w/ Anesthesia, Motion Sickness Additional Past Anesthesia/Blood Transfusion Reaction / Comment(s): trouble coming out of anesthesia & states hiccups for 4 days after anesthesia Date of Last Stent Placement:: 08/17/07 Past Psychological History: No Psychological Hx Reported Additional Psychological History / Comment(s): . Smoking Status: Never smoker Past Alcohol Use History: None Reported Past Drug Use History: None Reported - Past Family History Father Family Medical History: Cancer, Hyperlipidemia, Osteoarthritis (OA) Additional Family Medical History / Comment(s): Father of lung cancer-he was a smoker. Mother Family Medical History: Cancer, Diabetes Mellitus, Osteoarthritis (OA) Additional Family Medical History / Comment(s): Mother of ovarian cancer. Medications and Allergies Home Medications Medication Instructions Recorded Confirmed Type Carvedilol [Coreg] 12.5 mg PO BID 02/24/15 02/11/25 History Furosemide [Lasix] 20 mg PO MOWEFR 02/24/15 02/11/25 History Losartan [Cozaar] 25 mg PO DAILY 02/24/15 02/11/25 History Omeprazole [PriLOSEC] 20 mg PO AC-BRKFST 02/24/15 02/11/25 History Aspirin EC [Ecotrin Low Dose] 81 mg PO DAILY 12/05/16 02/11/25 History Potassium Citrate [Potassium 1,620 mg PO BID 12/05/16 02/11/25 History Citrate ER] Vitamin B Complex 1 cap PO DAILY 12/05/16 02/11/25 History Gabapentin [Neurontin] 300 mg PO DAILY 02/25/20 02/11/25 History Rosuvastatin Calcium [Crestor] 40 mg PO HS 02/25/20 02/11/25 History Tamsulosin HCl [Flomax] 0.4 mg PO HS 02/25/20 02/11/25 History metFORMIN HCL [metFORMIN HCL ER] 500 mg PO DAILY 02/25/20 02/11/25 History Apixaban [Eliquis] 5 mg PO BID 12/31/20 02/11/25 History Ferrous Sulfate [Iron (65 MG 325 mg PO MOWETHSA 12/31/20 02/11/25 History Elemental)] Isosorbide Mononitrate ER [Imdur] 30 mg PO DAILY 01/05/21 02/11/25 History Cholecalciferol [Vitamin D3 (25 25 mcg PO DAILY 06/29/22 02/11/25 History Mcg = 1000 Iu)] Ubidecarenone [Co Q-10] 100 mg PO SUTUTHSA 06/29/22 02/11/25 History glipiZIDE [glipiZIDE ER] 5 mg PO BID 06/29/22 02/11/25 History Ezetimibe [Zetia] 10 mg PO DAILY 05/31/24 02/11/25 History Ibuprofen [Motrin] 800 mg PO Q8HR PRN 05/31/24 02/10/25 History Insulin Glargine,Hum.rec.anlog 65 - 90 units SQ BID PRN 05/31/24 02/11/25 History [Lantus Solostar Pen] HYDROcodone/APAP 7.5-325MG [[place] 1 tab PO BID PRN 30 Days #60 tab 02/10/25 Rx 7.5-325] HYDROcodone/APAP 7.5-325MG [[place] 1 tab PO BID PRN 30 Days #60 tab 02/10/25 Rx 7.5-325] Allergies Allergy/AdvReac Type Severity Reaction Status Date / Time acetaminophen [From Percocet] Allergy Nausea & Verified 02/10/25 12:48 Vomiting & Diarrhea oxycodone [From Percocet] Allergy Nausea & Verified 02/10/25 12:48 Vomiting & Diarrhea Physical Exam Vitals: Vital Signs Temp Pulse Resp BP Pulse Ox 02/11/25 15:23 98.4 F 82 16 105/56 98 Intake and Output 02/11/25 02/11/25 02/11/25 06:59 14:59 22:59 Other: Weight 92.079 kg The patient appeared well nourished and normally developed. Vital signs as documented. The patient has a body mass index of 29.9. Weight is 203 pounds. Head exam is unremarkable. No scleral icterus or corneal arcus noted. Neck is without jugular venous distension, thyromegaly, or carotid bruits. Carotid upstrokes are brisk bilaterally. Lungs are clear to auscultation and percussion. Cardiac exam reveals the PMI to be normally sized and situated. Rhythm is regular. First and second heart sounds normal. No murmurs, rubs or gallops. Abdominal exam reveals normal bowel sounds, no masses, no organomegaly and no aortic enlargement. Extremities are edematous and both femoral and pedal pulses are normal. The patient is wearing compression stocking Examination of the skin revealed no evidence of significant rashes, suspicious appearing nevi or other concerning lesions. Neurologically, the patient is awake and alert and the patient does not have any focal neurological deficit. Cranial nerves are essentially intact. Assessment and Plan Plan: Loud snoring and witnessed apneas along with chronic fatigue and sleepiness. [place] score is at 8. Consider underlying obstructive sleep apnea. Grinding of the teeth, wearing a bite guard Coronary artery disease with previous myocardial infarction previous coronary stenting. Currently free of any chest pain Chronic systolic heart failure with ejection fraction of 34% with mild to moderate mitral regurgitation Claudication and peripheral vascular disease Hypertension Hyperlipidemia Diabetes mellitus type 2 Chronic back pain with degenerative lumbar disc disease, maintained on Malin Previous history of DVT maintained on lifelong anticoagulation with Eliquis. Plan Will screen the patient for sleep apnea. Based on his extensive cardiovascular history and comorbidities, I think he deserves a screening polysomnography to r ule out the possibility of obstructive sleep apnea. Based on that, we will make further recommendations. Be any need for treatment. Meanwhile, appropriate pulmonary clinic the sleep hygiene measures. The patient will maintain regular sleep schedule. Optimize comorbidities. Will continue to follow. Sleep Note - Sleep Data ESS Total: 9 - Sleep Note Sleep Note: Temperature: 98.4 F Pulse Rate: 82 Respiratory Rate: 16 Blood Pressure: 105/56 SpO2: 98 Height: 5 ft 9 in Weight: 92.079 kg BMI: Neck Circumference: 16
== END ==
LOC: 3 N SLEEP 14:44
PROVIDERS: ATTEND Internal Medicine Critical Care Medicine
DX: G47.33 Obstructive sleep apnea (adult) (pediatric) (principal); F45.8 Other somatoform disorders; I25.10 Atherosclerotic heart disease of native coronary artery without angina pectoris; I25.2 Old myocardial infarction; I50.22 Chronic systolic (congestive) heart failure; I34.0 Nonrheumatic mitral (valve) insufficiency; I73.9 Peripheral vascular disease, unspecified; I10 Essential (primary) hypertension; E78.5 Hyperlipidemia, unspecified; E11.9 Type 2 diabetes mellitus without complications; M51.369 Other intervertebral disc degeneration, lumbar region without mention of lumbar back pain or lower extremity pain; Z86.718 Personal history of other venous thrombosis and embolism; Z79.01 Long term (current) use of anticoagulants; Z95.5 Presence of coronary angioplasty implant and graft; Z88.5 Allergy status to narcotic agent; Z88.8 Allergy status to other drugs, medicaments and biological substances
CPT/HCPCS: 99211